=== PATIENT | male | born 1955 | race Caucasian/White ===

== ENCOUNTER 2018-05-15 08:25 | Day surgery (SDC) | payer BC ==
[2018-05-12 15:51] VITALS: BMI 34.3
[2018-05-15 08:55] LABS: EOS % 2.3 % (0-4.5); HEMATOCRIT 45.8 % (35.4-49); HEMOGLOBIN 15.8 GM/dL (11.7-16.9); LYMPH % 30.5 % (8-40); MCH 33.8 pg (25.7-33.7); MCHC 34.5 g/dl (32.0-35.9); MEAN PLT VOLUME 8.2 fl (7.5-11.1); MONO % 5.8 % (3.8-10.2); NEUT % 60.4 % (42.8-82.8); PLATELET COUNT 183 K/MM3 (134-434); RBC 4.68 M/mm3 (4.00-5.60); RDW 13.1 % (11.9-15.9); WHITE BLOOD COUNT 7.6 K/mm3 (4.0-10.0)
[2018-05-15 09:18] LABS: INR 1.01 (0.82-1.09); PROTHROMBIN TIME (PATIENT) 11.4 SEC (9.7-13.0)
[2018-05-15 15:39] VITALS: BP 143/73; PULSE 75; TEMP 97.9
--- NOTE | 2018-05-18 12:51 | PATH ---
Surgical Pathology Report Patient Name: LANDON NESS [facility]. Rec. #: [id number] /Age/Gender: 1955 (Age: 62) / M Account: [id number] Location: Taken: 05/15/2018 Received: 05/15/2018 Reported: 05/18/2018 Physicians: Mary Armenta M.D. Specimen(s) Received RIGHT LUNG BIOPSY Clinical History 62-year-old male with 2.2 cm PET positive right lower lung lesion Final Diagnosis Lung, right, LOWER, biopsy: non-small CELL lung carcinoma, Poorly differentiated. SEE COMMENT. Comment: Immunohistochemical stains performed at [place], [place] ([id number]) and interpreted at [facility] show the carcinoma is positive for TTF-1, Napsin A (focal), p40 and CK5/6; while negative for CK7. 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 Findings discussed with Elida from Dr. Eason's office. Electronically Signed Char Reeves M.D. Gross Description Received in formalin labeled "right lung biopsy," is a 0.4 x 0.4 x 0.1 cm aggregate of dobbins soft tissue fragments. The formalin is filtered and the specimen is entirely submitted in one cassette. DL/05/15/2018 saudi/05/15/2018
== END 2018-05-15 15:45 | disposition home or self-care (01) ==
LOC: JRADIR 08:25
PROVIDERS: ATTEND Surgery
PROC: 0BBF3ZX Excision of Right Lower Lung Lobe, Percutaneous Approach, Diagnostic (ICD-10-PCS; principal; 2018-05-15)
DX: C34.31 Malignant neoplasm of lower lobe, right bronchus or lung (principal)
CPT/HCPCS: 32405; 36415; 76098-TC-FY; 77012-TC; 85025; 85610; 87899; 88305-TC

== ENCOUNTER 2018-05-24 04:44 | Inpatient (IN) | payer BC ==
[2018-05-24] MEDS ORDERED: SEVOFLURANE 250 ML BTL ONE (07:25)
[2018-05-24] MEDS ORDERED: fentaNYL CITRATE 250 MCG/5 ML VIAL ONE (07:28)
[2018-05-24] MEDS ORDERED: MIDAZOLAM HCL 2 MG/2 ML SINGLE DOSE VIAL ONE (07:29)
[2018-05-24] MEDS ORDERED: ROCURONIUM BROMIDE 50 MG/5 ML VIAL ONE ×3 (07:29→09:57)
[2018-05-24] MEDS ORDERED: PROPOFOL 20 ML ONE ×3 (07:29→08:43)
[2018-05-24] MEDS ORDERED: LIDOCAINE HCL/PF 2% SDV 5ML VIAL ONE (07:30)
[2018-05-24] MEDS ORDERED: BUPIVACAINE HCL/PF 0.25% (2.5MG/ML) 10 ML VIAL ONE ×2 (07:36→12:10)
[2018-05-24] MEDS ORDERED: BUPIVACAINE HCL/PF 0.5% (5MG/ML) 10 ML VIAL ONE (07:36)
[2018-05-24] MEDS ORDERED: DEXAMETHASONE SOD PHOSPHATE 4 MG/1 ML VIAL ONE ×2 (08:08→12:28)
[2018-05-24] MEDS ORDERED: ONDANSETRON 4 MG/2 ML VIAL ONE ×2 (08:08→12:28)
[2018-05-24] MEDS ORDERED: ceFAZolin SODIUM 1 GM VIAL ONE ×2 (08:09→08:17)
[2018-05-24] MEDS ORDERED: ceFAZolin SODIUM 1 GM VIAL IVPB ONE (08:46)
[2018-05-24] MEDS ORDERED: HEPARIN NA (PORCINE) 5,000 UNITS/ML 1ML VIAL ONE (08:58)
[2018-05-24] MEDS ORDERED: HEPARIN NA (PORCINE) 5,000 UNITS/ML 1ML VIAL SQ ONE (09:04)
[2018-05-24] MEDS ORDERED: LIDOCAINE 1%/EPI 1:100000 (50 ML MULTI DOSE VIAL) INF ONE ×2 (09:24)
[2018-05-24] MEDS ORDERED: BUPIVACAINE HCL/PF 0.25% (2.5MG/ML) 10 ML VIAL IJ ONE ×2 (09:24)
[2018-05-24] MEDS ORDERED: PHENYLEPHRINE HCL 10 MG/1 ML SINGLE DOSE VIAL ONE (10:00)
[2018-05-24] MEDS ORDERED: NEOSTIGMINE METHYLSULFATE 0.5 MG/ML - 10 ML MDV ONE (12:23)
[2018-05-24] MEDS ORDERED: GLYCOPYRROLATE 0.2 MG/1 ML VIAL ONE (12:23)
--- NOTE | 2018-05-24 12:54 | OP ---
Operative Note - Note: Operative Date: 05/24/18 Pre-Operative Diagnosis: Lung cancer Operation: Bronchoscopy; VATS; RLLobectomy; MLN sampling; Intercostal nerve block. Findings: Bronchoscopy: no endobronchial lesions; some mucus. VATS: inflamed lung tissue and enlarged nodes, negative on frozen. Post-Operative Diagnosis: Same as Pre-op Surgeon: Abel Eason Internal Medicine Doctor: Bradley Coffey Anesthesiologist/AIRDROP SYSTEMS TECHNICIAN: Devin Pierre Anesthesia: General Specimens Removed: RLL; Mediastinal lymph nodes. Estimated Blood Loss (mls): 350 Drains & Tubes with Location: Right pleural space. Operative Report Dictated: Yes
[2018-05-24] MEDS ORDERED: MIDAZOLAM HCL 2 MG/2 ML SINGLE DOSE VIAL IVPUSH ONE ×2 (13:14→13:15)
[2018-05-24] MEDS ORDERED: HYDROmorphone *PCA* 10MG/50ML DISP.SYRIN PCA SCH (13:15)
[2018-05-24] MEDS ORDERED: PROMETHAZINE HCL 25 MG/1 ML VIAL IVPB PRN (13:15)
[2018-05-24] MEDS ORDERED: ONDANSETRON 4 MG/2 ML VIAL IVPUSH PRN (13:15)
[2018-05-24] MEDS ORDERED: DEXAMETHASONE SOD PHOSPHATE 4 MG/1 ML VIAL IVPUSH PRN (13:15)
[2018-05-24] MEDS ORDERED: SODIUM CHLORIDE 1,000 ML IV SCH (13:15)
[2018-05-24] MEDS ORDERED: HYDROmorphone *PCA* 10MG/50ML DISP.SYRIN PCA ONE (13:25)
[2018-05-24] MEDS ORDERED: GABAPENTIN 300 MG CAPSULE (FP) PO SCH (14:00)
[2018-05-24] MEDS ORDERED: DOCUSATE NA 100 MG/10 ML UNIT-DOSE CUPS PO SCH (14:00)
--- NOTE | 2018-05-24 16:34 | CONSULT ---
Consultation: REQUESTING PROVIDER: CONSULT REQUEST: We have been asked to medically evaluate this patient for ( specify). HISTORY OF PRESENT ILLNESS: This is a 62 yo M with PMH of DM, HTN and glaucoma, who presents POD 0 s/p Bronch, VATS, RLL lobectomy and MLN sampling, performed due to suspicion of lung CA. Procedure went w/o complication, EBL 350 cc. R sided chest Tube in in place to suction, draining minimal serosanguineous fluid. Patient is very sleepy. he complains of some R sided perlitic chest pain and cough but denies sob, cp, abd pain, n/v, h/a. REVIEW OF SYSTEMS: CONSTITUTIONAL: Absent: fever, chills HEENT: Absent: throat pain, throat swelling, difficulty swallowing CARDIOVASCULAR: Absent: chest pain, syncope, palpitations RESPIRATORY: Absent: shortness of breath, orthopnea GASTROINTESTINAL: Absent: abdominal pain, abdominal distension, nausea, vomiting GENITOURINARY: Absent: dysuria MUSCULOSKELETAL: Absent: myalgia, arthralgia SKIN: Absent: rash HEMATOLOGIC/IMMUNOLOGIC: Absent: easy bleeding, easy bruising ENDOCRINE: Absent: unexplained weight gain, unexplained weight loss NEUROLOGIC: Absent: headache, focal weakness or paresthesias PSYCHIATRIC: Absent: anxiety, depression PHYSICAL EXAMINATION Vital Signs - 24 hr 05/24/18 05/24/18 05/24/18 06:51 07:02 13:06 Temperature 98.3 F 97.8 F Pulse Rate 78 120 H Respiratory 20 26 H Rate Blood Pressure 119/77 186/83 O2 Sat by Pulse 96 98 Oximetry (%) 05/24/18 05/24/18 05/24/18 13:20 13:35 13:50 Temperature Pulse Rate 118 H 122 H 124 H Respiratory 30 H 28 H 32 H Rate Blood Pressure 159/70 175/76 141/75 O2 Sat by Pulse 100 98 96 Oximetry (%) 05/24/18 05/24/18 05/24/18 14:05 14:20 14:35 Temperature Pulse Rate 116 H 106 H 110 H Respiratory 30 H 30 H 26 H Rate Blood Pressure 183/72 172/80 116/60 O2 Sat by Pulse 96 96 94 L Oximetry (%) 05/24/18 05/24/18 05/24/18 14:50 15:05 15:20 Temperature Pulse Rate 108 H 106 H 106 H Respiratory 26 H 26 H 26 H Rate Blood Pressure 136/66 123/67 141/64 O2 Sat by Pulse 94 L 94 L 94 L Oximetry (%) GENERAL: Awake, and fully oriented, sleepy HEAD: Normal with no signs of trauma. EYES: Pupils equal, round and reactive to light, extraocular movements intact, sclera anicteric, conjunctiva clear. No lid lag. EARS, NOSE, THROAT: Moist mucous membranes. NECK: supple LUNGS: R sided crackles HEART: Regular rate and rhythm, normal S1 and S2 ABDOMEN: Soft, nontender, not distended, globally reduced bowel sounds MUSCULOSKELETAL: No CVA tenderness. R sided chest tube in place, clean dry dressing applied UPPER EXTREMITIES: 2+ pulses, warm, well-perfused. LOWER EXTREMITIES: 2+ pulses, warm, well-perfused. No peripheral edema. NEUROLOGICAL: Cranial nerves II-XII grossly intact. PSYCHIATRIC: Cooperative. Good eye contact. Appropriate mood and affect. SKIN: Warm, dry Laboratory Results - last 24 hr 05/24/18 06:30 POC Glucometer 263 Active Medications Generic Name Dose Route Start Last Admin Trade Name Freq PRN Reason Stop Dose Admin Dexamethasone Sodium Phosphate 4 mg 05/24/18 13:15 Decadron Injection - IVPUSH ONCE PRN NAUSEA AND/OR VOMITING Diphenhydramine HCl 12.5 mg 05/24/18 13:15 Benadryl Injection - IVPUSH ONCE PRN FOR ITCHING Fentanyl 50 mcg 05/24/18 13:14 Sublimaze Injection - IVPUSH [id number] PRN PAIN-PACU ORDER X 4 DOSES ONLY Heparin Sodium (Porcine) 5,000 unit 05/24/18 22:00 Heparin - SQ BID ASIYA Hydromorphone HCl 0 mg 05/24/18 13:15 Dilaudid [employer]crew[employer] Operator - PAYROLL SECRETARY 05/31/18 13:15 PAYROLL SECRETARY ASIYA Protocol Sodium Chloride 1,000 mls @ 75 mls/hr 05/24/18 13:15 Normal Saline - IV ASDIR ASIYA Ipratropium [place] 1 amp 05/24/18 16:00 Atrovent 0.02% Nebulizer - NEB RQID ASIYA Ondansetron HCl 4 mg 05/24/18 13:15 Zofran Injection IVPUSH Q4H PRN NAUSEA AND/OR VOMITING Promethazine HCl 12.5 mg 05/24/18 13:15 Phenergan Injection - IVPB Q6H PRN NAUSEA AND/OR VOMITING ASSESSMENT/PLAN: This is a 62 yo M with PMH of DM, HTN and glaucoma, who presents POD 0 s/p Bronch, VATS, RLL lobectomy and MLN sampling, performed due to suspicion of lung CA. Suspicious RLL pulmonary lesion POD 0 s/p RLL lobectomy/MLN sampling -R chest tube to suction -pain control with IV tylenol, dilaudid PAYROLL SECRETARY -NS @ 75 -NPO except meds -incentive spirometry -aspiration precautions -hep sq ppx -PPI NIDDM HTN Glaucoma -ISS, BGM -toprol xl, lisinopril -lantoprost OU Dispo: We will continue to follow the patient. Thank you for this consultative opportunity. Problem List - Problems (1) S/P lobectomy of lung Code(s): Z90.2 - ACQUIRED ABSENCE OF LUNG [PART OF] (2) Lung cancer Code(s): C34.90 - MALIGNANT NEOPLASM OF UNSP PART OF UNSP BRONCHUS OR LUNG (3) HTN (hypertension) Code(s): I10 - ESSENTIAL (PRIMARY) HYPERTENSION (4) Diabetes mellitus Code(s): E11.9 - TYPE 2 DIABETES MELLITUS WITHOUT COMPLICATIONS (5) Glaucoma Code(s): H40.9 - UNSPECIFIED GLAUCOMA Visit type - Emergency Visit Emergency Visit: No - New Patient This patient is new to me today: Yes Date on this admission: 05/24/18 - Critical Care Critical Care patient: Yes Total Critical Care Time (in minutes): 35 Critical Care Statement: The care of this patient involved high complexity decision making to prevent further life threatening deterioration of the patient 's condition and/or to evaluate & treat vital organ system(s) failure or risk of failure.
[2018-05-24] MEDS ORDERED: ACETAMINOPHEN 1000 MG/100 ML VIAL (NON FORMULARY) IVPB PRN (16:51)
--- NOTE | 2018-05-24 16:54 | HP ---
Admitting History and Physical - Primary Care Physician PCP: Torres Cantrell ([email or web address]) - Admission Chief Complaint: Lung Biopsy History of Present Illness: This is a 62 yo M with PMH of DM and HTN, who presents POD 0 s/p Bronchoscopy, VATS, RLL lobectomy and MLN sampling, performed due to suspicion of lung CA. Procedure went w/o complication, EBL 350 cc. R sided chest Tube in in place to suction, draining minimal serosanguineous fluid. Patient Lethargic due to Anesthesia. Seen in PACU S/P lobectomy. Was agitated, given versed. History Source: Medical Record Limitations to Obtaining History: Clinical Condition - Smoking History Smoking history: Former smoker Have you smoked in the past 12 months: Yes Aproximately how many cigarettes per day: 20 If you are a former smoker, when did you quit?: 03/2018 - Alcohol/Substance Use Hx Alcohol Use: No Home Medications - Allergies Allergies/Adverse Reactions: Allergies Allergy/AdvReac Type Severity Reaction Status Date / Time No Known Drug Allergies Allergy Verified 05/24/18 07:02 - Home Medications Home Medications: Ambulatory Orders Lisinopril [Prinivil] 10 mg PO HS 11/28/13 Metoprolol Succinate [Toprol XL -] 25 mg PO HS 01/15/14 Aspirin [ASA -] 81 mg PO DAILY 05/12/18 Latanoprost 0.005% Eye Drops [Xalatan 0.005% Eye Drops -] 1 drop OU HS 05/12/18 metFORMIN HCL [Metformin HCl] 500 mg PO HS 05/12/18 Review of Systems Unable to obtain ROS, reason: Pt lethargic Physical Examination Vital Signs: Vital Signs Temperature 98.5 F 05/24/18 16:05 Pulse Rate 108 H 05/24/18 16:45 Respiratory Rate 25 H 05/24/18 16:45 Blood Pressure 133/72 05/24/18 16:45 O2 Sat by Pulse Oximetry (%) 98 05/24/18 16:15 Constitutional: Yes: Well Nourished, No Distress, Calm Cardiovascular: Yes: Regular Rate and Rhythm Respiratory: Yes: Regular Gastrointestinal: Yes: Normal Bowel Sounds, Soft, Abdomen, Obese Neurological: Yes: Other (arousable) Problem List - Problems (1) Diabetes mellitus Assessment/Plan: -BGM ACHS -Diabetic diet when ready to start PO intake -Insulin -RD consult -A1C Code(s): E11.9 - TYPE 2 DIABETES MELLITUS WITHOUT COMPLICATIONS Qualifiers: Diabetes mellitus complication detail: with autonomic neuropathy (2) S/P lobectomy of lung Assessment/Plan: -Seen by CT surgery -Chest tube draining -Would need ICU monitoring -Vitals stable at this time -Pain management Code(s): Z90.2 - ACQUIRED ABSENCE OF LUNG [PART OF] Assessment/Plan see problem list labs
[2018-05-24] MEDS ORDERED: CEFAZOLIN 1 GM in DEXTROSE 5%-WATER - 50 ML IVPB SCH (18:00)
[2018-05-24] MEDS: IPRATROPIUM BR 0.02% 0.5 MG/2.5 ML VIAL.NEB. NEB SCH ×2 (18:00→20:54)
[2018-05-24 18:25] LABS: BASO % 0.2 % (0-2.0); LYMPH % 3.1 % (8-40); MCH 34.4 pg (25.7-33.7); MCHC 34.8 g/dl (32.0-35.9); MEAN CELL VOLUME 98.9 fl (80-96); MEAN PLT VOLUME 7.8 fl (7.5-11.1); MONO % 5.1 % (3.8-10.2); NEUT % 91.6 % (42.8-82.8); PLATELET COUNT 208 K/MM3 (134-434); RBC 4.35 M/mm3 (4.00-5.60); RDW 13.2 % (11.9-15.9); WHITE BLOOD COUNT 15.4 K/mm3 (4.0-10.0)
[2018-05-24 18:46] LABS: CORRECTED WBC 0.01 K/mm3
[2018-05-24 18:47] LABS: ALBUMIN 3.3 g/dl (3.4-5.0); ALK PHOS 66 U/L (45-117); ANION GAP 9 (8-16); BILIRUBIN,TOTAL 0.9 mg/dL (0.2-1.0); BLOOD UREA NITROGEN 18 mg/dL (7-18); CALCIUM 8.4 mg/dL (8.5-10.1); CHLORIDE 103 mmol/L (98-107); CO2 23 mmol/L (21-32); CREATININE 1.4 mg/dL (0.7-1.3); MAGNESIUM 1.9 mg/dL (1.8-2.4); PHOSPHOROUS 3.8 mg/dL (2.5-4.9); SGOT/AST 43 U/L (15-37); SGPT/ALT 54 U/L (12-78); SODIUM 135 mmol/L (136-145)
[2018-05-24 18:51] LABS: GLUCOSE,RANDOM 370 mg/dL (74-106); POTASSIUM 6.4 mmol/L (3.5-5.1)
[2018-05-24] MEDS ORDERED: ALBUTEROL SO4 2.5/IPRATROPIUM 0.5 INH SOL 3 ML VIAL.NEB. NEB PRN (19:35)
[2018-05-24 20:31] LABS: ANISOCYTOSIS 1+; MACROCYTOSIS 1+; PLATELET ESTIMATE ADEQUATE
[2018-05-24] MEDS ORDERED: SODIUM POLYSTYRENE SULFONATE 15 GM/60 ML BOTTLE PO ONE (21:00)
[2018-05-24] MEDS: HEPARIN NA (PORCINE) 5,000 UNITS/ML 1ML VIAL SQ SCH (21:18)
[2018-05-24] MEDS: INSULIN SLIDING SCALE (NOVOLOG) 1 VIAL SQ SCH (21:43)
[2018-05-24 22:00] LABS: ANION GAP 8 (8-16); BLOOD UREA NITROGEN 19 mg/dL (7-18); CALCIUM 8.4 mg/dL (8.5-10.1); CHLORIDE 104 mmol/L (98-107); CO2 25 mmol/L (21-32); CREATININE 1.3 mg/dL (0.7-1.3); GLUCOSE,RANDOM 284 mg/dL (74-106); POTASSIUM 5.3 mmol/L (3.5-5.1); SODIUM 137 mmol/L (136-145)
[2018-05-24] MEDS ORDERED: LISINOPRIL 10 MG TABLET (FP) PO SCH (22:00)
[2018-05-24] MEDS ORDERED: LATANOPROST 0.005% OPHTH SOLN 2.5ML BOTTLE OU SCH (22:00)
[2018-05-24] MEDS ORDERED: INSULIN SLIDING SCALE (NOVOLOG) 1 VIAL SQ SCH (22:00)
[2018-05-24] MEDS ORDERED: SENNOSIDES 8.6MG TABLET (FP) PO SCH (22:00)
[2018-05-24] MEDS ORDERED: metoPROLOL SUCCINATE 25 MG TAB.SR.24H (FP) PO SCH (22:00)
[2018-05-25] MEDS: INSULIN SLIDING SCALE (NOVOLOG) 1 VIAL SQ SCH ×4 (06:24→21:45)
[2018-05-25 06:43] LABS: BASO % 0.4 % (0-2.0); EOS % 0.1 % (0-4.5); HEMATOCRIT 38.7 % (35.4-49); HEMOGLOBIN 13.6 GM/dL (11.7-16.9); LYMPH % 15.1 % (8-40); MCHC 35.2 g/dl (32.0-35.9); MEAN CELL VOLUME 99.3 fl (80-96); MEAN PLT VOLUME 8.1 fl (7.5-11.1); MONO % 7.7 % (3.8-10.2); NEUT % 76.7 % (42.8-82.8); PLATELET COUNT 197 K/MM3 (134-434); RBC 3.89 M/mm3 (4.00-5.60); WHITE BLOOD COUNT 12.9 K/mm3 (4.0-10.0)
[2018-05-25 06:56] LABS: ALBUMIN 2.9 g/dl (3.4-5.0); ANION GAP 7 (8-16); BLOOD UREA NITROGEN 21 mg/dL (7-18); CALCIUM 7.8 mg/dL (8.5-10.1); CHLORIDE 105 mmol/L (98-107); CO2 27 mmol/L (21-32); GLUCOSE,RANDOM 238 mg/dL (74-106); PHOSPHOROUS 3.5 mg/dL (2.5-4.9); POTASSIUM 4.7 mmol/L (3.5-5.1); SGOT/AST 27 U/L (15-37); SGPT/ALT 41 U/L (12-78); SODIUM 139 mmol/L (136-145)
[2018-05-25 06:59] LABS: ALK PHOS 56 U/L (45-117); BILIRUBIN,TOTAL 0.7 mg/dL (0.2-1.0); CREATININE 1.2 mg/dL (0.7-1.3); TOT PROT 6.2 g/dl (6.4-8.2)
[2018-05-25] MEDS: IPRATROPIUM BR 0.02% 0.5 MG/2.5 ML VIAL.NEB. NEB SCH ×2 (08:31→12:00)
--- NOTE | 2018-05-25 08:52 | PN ---
Progress Note, Physician Chief Complaint: s/p right VATS, Right lower lobectomy under general anesthesia History of Present Illness: post op day one - Current Medication List Current Medications: Active Medications Acetaminophen (Ofirmev Injection -) 1,000 mg IVPB Q6H PRN PRN Reason: PAIN LEVEL 1-5 Albuterol/Ipratropium (Duoneb -) 1 amp NEB Q6H PRN PRN Reason: SHORTNESS OF BREATH Dexamethasone Sodium Phosphate (Decadron Injection -) 4 mg IVPUSH ONCE PRN PRN Reason: NAUSEA AND/OR VOMITING Diphenhydramine HCl (Benadryl Injection -) 12.5 mg IVPUSH ONCE PRN PRN Reason: FOR ITCHING Fentanyl (Sublimaze Injection -) 50 mcg IVPUSH [id number] PRN PRN Reason: PAIN-PACU ORDER X 4 DOSES ONLY Heparin Sodium (Porcine) (Heparin -) 5,000 unit SQ BID ASIYA Last Admin: 05/24/18 21:18 Dose: 5,000 unit Hydromorphone HCl (Dilaudid Electrician Powerhouse -) 0 mg ACOUSTICAL ENGINEER ACOUSTICAL ENGINEER [facility]; Protocol Stop: 05/31/18 13:15 Last Admin: 05/24/18 17:35 Dose: Not Given Sodium Chloride (Normal Saline -) 1,000 mls @ 75 mls/hr IV ASDIR [facility] Last Admin: 05/24/18 17:15 Dose: Not Given Insulin Aspart (Novolog Vial Sliding Scale -) 1 vial SQ ACHS [facility]; Protocol Last Admin: 05/25/18 06:24 Dose: 6 units Ipratropium [place] (Atrovent 0.02% Nebulizer -) 1 amp NEB RQID [facility] Last Admin: 05/25/18 08:31 Dose: 1 amp Latanoprost (Xalatan 0.005% Eye Drops -) 1 drop OU HS [facility] Last Admin: 05/24/18 23:47 Dose: 1 drop Lisinopril (Prinivil) 10 mg PO HS [facility] Last Admin: 05/24/18 21:19 Dose: 10 mg Metoprolol Succinate (Toprol Xl -) 25 mg PO HS [facility] Last Admin: 05/24/18 21:19 Dose: 25 mg Ondansetron HCl (Zofran Injection) 4 mg IVPUSH Q4H PRN PRN Reason: NAUSEA AND/OR VOMITING Pantoprazole Sodium (Protonix Iv) 40 mg IVPUSH DAILY ASIYA Promethazine HCl (Phenergan Injection -) 12.5 mg IVPB Q6H PRN PRN Reason: NAUSEA AND/OR VOMITING - Objective Vital Signs: Vital Signs Temperature 98.8 F 05/25/18 06:00 Pulse Rate 136 H 05/25/18 08:00 Respiratory Rate 21 05/25/18 08:00 Blood Pressure 118/70 05/25/18 08:00 O2 Sat by Pulse Oximetry (%) 96 05/24/18 20:55 Constitutional: Yes: Well Nourished Cardiovascular: Yes: WNL Respiratory: Yes: On Nasal O2 Gastrointestinal: Yes: WNL Labs: CBC, BMP 05/25/18 05:30 05/25/18 05:30 Assessment/Plan No adverse effects of anesthetic, on ACOUSTICAL ENGINEER, working well, will discontinue as patient is taking PO and convert to oral analgesics.
[2018-05-25] MEDS ORDERED: oxyCODONE HCL 5 MG TABLET PO PRN ×4 (08:53→16:51)
[2018-05-25] MEDS ORDERED: DOCUSATE SODIUM 100 MG CAPSULE (FP) PO PRN ×2 (08:53→16:51)
[2018-05-25] MEDS: HEPARIN NA (PORCINE) 5,000 UNITS/ML 1ML VIAL SQ SCH ×2 (09:29→21:25)
[2018-05-25] MEDS ORDERED: ACETAMINOPHEN 325 MG TABLET (FP) PO PRN ×2 (09:53→16:51)
--- NOTE | 2018-05-25 09:55 | PN ---
Progress Note (short form) - Note Progress Note: Thoracic Surgery POD#1 Doing well, pain controlled, now on po. Added gabapentin and po tylenol. Slight tachycardia OOB, ambulate. Pulm toilet, to have standing ipratropium nebs and work with Resp therapy. Chest tube to water seal, likely remove tomorrow.
[2018-05-25] MEDS ORDERED: IPRATROPIUM BR 0.02% 0.5 MG/2.5 ML VIAL.NEB. NEB SCH (10:00)
[2018-05-25] MEDS ORDERED: PANTOPRAZOLE SODIUM 40 MG VIAL IVPUSH SCH (10:00)
[2018-05-25] MEDS ORDERED: METOPROLOL TARTRATE 25 MG TABLET (FP) PO SCH (12:15)
[2018-05-25] MEDS ORDERED: ALBUTEROL SO4 2.5/IPRATROPIUM 0.5 INH SOL 3 ML VIAL.NEB. NEB PRN (12:34)
--- NOTE | 2018-05-25 12:37 | PN ---
Progress Note, Physician Chief Complaint: patient seen and examiend s/p VATS and right lower lobectomy popst op day 1 chest tube draining on po meds - Current Medication List Current Medications: Active Medications Acetaminophen (Tylenol -) 650 mg PO Q4H PRN PRN Reason: MILD PAIN Albuterol/Ipratropium (Duoneb -) 1 amp NEB Q6H ASIYA Dexamethasone Sodium Phosphate (Decadron Injection -) 4 mg IVPUSH ONCE PRN PRN Reason: NAUSEA AND/OR VOMITING Diphenhydramine HCl (Benadryl Injection -) 12.5 mg IVPUSH ONCE PRN PRN Reason: FOR ITCHING Docusate Sodium (Colace -) 100 mg PO Q8H PRN PRN Reason: CONSTIPATION Last Admin: 05/25/18 11:44 Dose: 100 mg Gabapentin (Neurontin -) 600 mg PO TID [facility] Heparin Sodium (Porcine) (Heparin -) 5,000 unit SQ BID [facility] Last Admin: 05/25/18 09:29 Dose: 5,000 unit Insulin Aspart (Novolog Vial Sliding Scale -) 1 vial SQ ACHS [facility]; Protocol Last Admin: 05/25/18 11:02 Dose: 6 units Ipratropium [place] (Atrovent 0.02% Nebulizer -) 1 amp NEB RQID [facility] Last Admin: 05/25/18 08:31 Dose: 1 amp Ipratropium [place] (Atrovent 0.02% Nebulizer -) 1 amp NEB Q6H ASIYA Latanoprost (Xalatan 0.005% Eye Drops -) 1 drop OU HS [facility] Last Admin: 05/24/18 23:47 Dose: 1 drop Lisinopril (Prinivil) 10 mg PO HS [facility] Last Admin: 05/24/18 21:19 Dose: 10 mg Metoprolol Tartrate (Lopressor -) 25 mg PO BID [facility] Ondansetron HCl (Zofran Injection) 4 mg IVPUSH Q4H PRN PRN Reason: NAUSEA AND/OR VOMITING Oxycodone HCl (Roxicodone -) 10 mg PO Q3H PRN PRN Reason: PAIN LEVEL 7 - 10 Oxycodone HCl (Roxicodone -) 5 mg PO Q3H PRN PRN Reason: PAIN LEVEL 4 - 6 Last Admin: 05/25/18 11:45 Dose: 5 mg Pantoprazole Sodium (Protonix Iv) 40 mg IVPUSH DAILY ASIYA Last Admin: 05/25/18 09:29 Dose: 40 mg Promethazine HCl (Phenergan Injection -) 12.5 mg IVPB Q6H PRN PRN Reason: NAUSEA AND/OR VOMITING - Objective Vital Signs: Vital Signs Temperature 97.9 F 05/25/18 10:00 Pulse Rate 92 H 05/25/18 12:00 Respiratory Rate 21 05/25/18 12:00 Blood Pressure 111/62 05/25/18 12:00 O2 Sat by Pulse Oximetry (%) 96 05/25/18 08:01 Constitutional: Yes: Calm Cardiovascular: Yes: Regular Rate and Rhythm, S1, S2 Respiratory: Yes: CTA Bilaterally (in upper [place]), Diminished, Other (right sided chest tube serosangionus) Gastrointestinal: Yes: Normal Bowel Sounds, Soft Extremities: Yes: Other (scd) Neurological: Yes: Alert, Oriented Labs: CBC, BMP 05/25/18 05:30 05/25/18 05:30 Problem List - Problems (1) S/P lobectomy of lung Assessment/Plan: CTS on board chest tube to be removed tmw nebulizers incentive spirometry pain control dvt ppx Code(s): Z90.2 - ACQUIRED ABSENCE OF LUNG [PART OF] (2) Glaucoma Assessment/Plan: eye drops Code(s): H40.9 - UNSPECIFIED GLAUCOMA (3) HTN (hypertension) Assessment/Plan: lisinopril and metoprolol Code(s): I10 - ESSENTIAL (PRIMARY) HYPERTENSION (4) Diabetes mellitus Assessment/Plan: sliding scale bgm diabetic diet Code(s): E11.9 - TYPE 2 DIABETES MELLITUS WITHOUT COMPLICATIONS Qualifiers: Diabetes mellitus complication detail: with autonomic neuropathy
[2018-05-25] MEDS ORDERED: ALBUTEROL SO4 2.5/IPRATROPIUM 0.5 INH SOL 3 ML VIAL.NEB. NEB SCH (12:45)
[2018-05-25] MEDS ORDERED: GABAPENTIN 300 MG CAPSULE (FP) PO SCH (14:00)
--- NOTE | 2018-05-25 14:23 | PN ---
Physical Exam: SUBJECTIVE: Patient seen and examined in the ICU. States his SOB is improving. Complains of pain at the site of the chest tube and on deep inspiration. States he is tolerating his diet well and is not currently having nausea or vomiting. OBJECTIVE: Vital Signs Period Temp Pulse Resp BP Sys/[place] Pulse Ox Last 24 Hr 97.9 F-98.8 F 74-136 14-30 111-172/03-80 94-98 GENERAL: The patient is awake, alert, and fully oriented, in no acute distress. HEAD: Normal with no signs of trauma. EYES: PERRL, sclera anicteric, conjunctiva clear. No ptosis. ENT: moist mucous membranes. NECK: Trachea midline, supple. LUNGS: Crackles worse on the right HEART: Regular rate and rhythm, S1, S2 without murmur, rub or gallop. ABDOMEN: Soft, nontender, nondistended, normoactive bowel sounds, no guarding, no rebound EXTREMITIES: warm, well-perfused, no edema. NEUROLOGICAL: Cranial nerves II through XII grossly intact. Normal speech, gait not observed. PSYCH: Normal mood, normal affect. SKIN: Warm, dry, normal turgor, no rashes or lesions noted Laboratory Results - last 24 hr 05/24/18 05/24/18 05/24/18 17:45 17:45 21:20 WBC 15.4 H Corrected WBC (auto) 0.01 RBC 4.35 Hgb 15.0 Hct 43.0 MCV 98.9 H MCH 34.4 H MCHC 34.8 RDW 13.2 Plt Count 208 MPV 7.8 Absolute Neuts (auto) 14.1 Neutrophils % 91.6 H D Neutrophils % (Manual) 85.0 H Band Neutrophils % 5.0 Lymphocytes % 3.1 L D Lymphocytes % (Manual) 8.0 Monocytes % 5.1 Monocytes % (Manual) 2 L Eosinophils % 0.0 D Basophils % 0.2 Nucleated RBC % 0 Platelet Estimate Adequate Platelet Comment No clumping noted Anisocytosis 1+ Macrocytosis 1+ Sodium 135 L 137 Potassium 6.4 H* D 5.3 H Chloride 103 104 Carbon Dioxide 23 25 Anion Gap 9 8 BUN 18 19 H Creatinine 1.4 H 1.3 Creat Clearance w eGFR 51.18 55.75 Random Glucose 370 H* 284 H D Calcium 8.4 L 8.4 L Phosphorus 3.8 Magnesium 1.9 Total Bilirubin 0.9 AST 43 H ALT 54 Alkaline Phosphatase 66 D Total Protein 7.0 Albumin 3.3 L 05/25/18 05/25/18 05:30 05:30 WBC 12.9 H Corrected WBC (auto) RBC 3.89 L Hgb 13.6 Hct 38.7 MCV 99.3 H MCH 35.0 H MCHC 35.2 RDW 13.0 Plt Count 197 MPV 8.1 Absolute Neuts (auto) 9.9 Neutrophils % 76.7 Neutrophils % (Manual) Band Neutrophils % Lymphocytes % 15.1 D Lymphocytes % (Manual) Monocytes % 7.7 Monocytes % (Manual) Eosinophils % 0.1 D Basophils % 0.4 Nucleated RBC % 0 Platelet Estimate Platelet Comment Anisocytosis Macrocytosis Sodium 139 Potassium 4.7 Chloride 105 Carbon Dioxide 27 Anion Gap 7 L BUN 21 H Creatinine 1.2 Creat Clearance w eGFR > 60 Random Glucose 238 H Calcium 7.8 L Phosphorus 3.5 Magnesium 2.0 Total Bilirubin 0.7 AST 27 D ALT 41 D Alkaline Phosphatase 56 D Total Protein 6.2 L Albumin 2.9 L Active Medications Generic Name Dose Route Start Last Admin Trade Name Freq PRN Reason Stop Dose Admin Acetaminophen 650 mg 05/25/18 09:53 Tylenol - PO Q4H PRN MILD PAIN Albuterol/Ipratropium 1 amp 05/25/18 12:45 Duoneb - NEB QIDR ASIYA Albuterol/Ipratropium 1 amp 05/25/18 12:34 Duoneb - NEB Q6H PRN SHORTNESS OF BREATH Dexamethasone Sodium Phosphate 4 mg 05/24/18 13:15 Decadron Injection - IVPUSH ONCE PRN NAUSEA AND/OR VOMITING Diphenhydramine HCl 12.5 mg 05/24/18 13:15 Benadryl Injection - IVPUSH ONCE PRN FOR ITCHING Docusate Sodium 100 mg 05/25/18 08:53 05/25/18 11:44 Colace - PO 100 mg Q8H PRN Administration CONSTIPATION Gabapentin 600 mg 05/25/18 14:00 05/25/18 13:49 Neurontin - PO 600 mg TID ASIYA Administration Heparin Sodium (Porcine) 5,000 unit 05/24/18 22:00 05/25/18 09:29 Heparin - SQ 5,000 unit BID ASIYA Administration Insulin Aspart 1 vial 05/24/18 22:00 05/25/18 11:02 Novolog Vial Sliding Scale - SQ 6 units ACHS ASIYA Administration Protocol Ipratropium [place] 1 amp 05/24/18 16:00 05/25/18 08:31 Atrovent 0.02% Nebulizer - NEB 1 amp RQID ASIYA Administration Ipratropium [place] 1 amp 05/25/18 10:00 Atrovent 0.02% Nebulizer - NEB Q6H ASIYA Latanoprost 1 drop 05/24/18 22:00 05/24/18 23:47 Xalatan 0.005% Eye Drops - OU 1 drop HS ASIYA Administration Lisinopril 10 mg 05/24/18 22:00 05/24/18 21:19 Prinivil PO 10 mg HS ASIYA Administration Metoprolol Tartrate 25 mg 05/25/18 12:15 05/25/18 13:15 Lopressor - PO 25 mg BID ASIYA Administration Ondansetron HCl 4 mg 05/24/18 13:15 Zofran Injection IVPUSH Q4H PRN NAUSEA AND/OR VOMITING Oxycodone HCl 10 mg 05/25/18 08:53 05/25/18 14:04 Roxicodone - PO 10 mg Q3H PRN Administration PAIN LEVEL 7 - 10 Oxycodone HCl 5 mg 05/25/18 08:53 05/25/18 11:45 Roxicodone - PO 5 mg Q3H PRN Administration PAIN LEVEL 4 - 6 Pantoprazole Sodium 40 mg 05/25/18 10:00 05/25/18 09:29 Protonix Iv IVPUSH 40 mg DAILY ASIYA Administration Promethazine HCl 12.5 mg 05/24/18 13:15 Phenergan Injection - IVPB Q6H PRN NAUSEA AND/OR VOMITING ASSESSMENT/PLAN: 62 yo male admitted to the ICU s/p VATS with RLL lobectomy to remove nodule most likely a type of Non small cell lung cancer. Post op day 1 Neuro -No known neuro issues at this time Cardio -HTN/Tachycardia currently regular rate, normotensive Metoprolol 25 mg PO BID, will adjust as necessary for HR control Lisinopril 10 mg PO Daily Pulmonary -s/p VATS with RLL lobectomy to remove nodule awaiting pathology report Right chest tube in place, gravity drainage Incentive spirometry Atrovent NEB Q6 PRN GI -GERD Protonix 40 mg IV Daily Endocrine -DM Insulin sliding scale Pain control -d/c SCREEDMAN/LABORER as per anesthesia -Tylenol 650 mg PO Q4 PRN -Oxycodone 5 mg PO Q3 PRN -Oxycodone 10 mg PO Q3 PRN -Gabapentin 600 mg PO TID DVT Prophylaxis -Heparin 5000 units SQ BID FEN -Fluids: none -Electrolytes: no electrolyte abnormalities, BMP in AM -Nutrition: Diabetic diet Disposition -can be transferred to telemetry Problem List - Problems (1) Diabetes mellitus Code(s): E11.9 - TYPE 2 DIABETES MELLITUS WITHOUT COMPLICATIONS Qualifiers: Diabetes mellitus complication detail: with autonomic neuropathy (2) HTN (hypertension) Code(s): I10 - ESSENTIAL (PRIMARY) HYPERTENSION (3) Lung cancer Code(s): C34.90 - MALIGNANT NEOPLASM OF UNSP PART OF UNSP BRONCHUS OR LUNG (4) S/P lobectomy of lung Code(s): Z90.2 - ACQUIRED ABSENCE OF LUNG [PART OF] Visit type - Emergency Visit Emergency Visit: No - New Patient This patient is new to me today: Yes Date on this admission: 05/25/18 - Critical Care Critical Care patient: Yes Total Critical Care Time (in minutes): 40 Critical Care Statement: The care of this patient involved high complexity decision making to prevent further life threatening deterioration of the patient 's condition and/or to evaluate & treat vital organ system(s) failure or risk of failure.
--- NOTE | 2018-05-25 14:27 | PN ---
Teaching Attending Note Name of Resident: Haider Hussein ATTENDING PHYSICIAN STATEMENT I saw and evaluated the patient. I reviewed the resident's note and discussed the case with the resident. I agree with the resident's findings and plan as documented. SUBJECTIVE: Patient seen examined in the ICU. Awake and alert. Pain seems adequately controlled. No hemoptysis. CT intact: No air leak. CXR: CT intact / no PTX Intake & Output 05/22/18 05/23/18 05/24/18 05/25/18 23:59 23:59 23:59 23:59 Intake Total 3250 560 Output Total 2670 710 Balance 580 -150 Weight 175 lb 180 lb 4.8 oz Last Vital Signs Temp Pulse Resp BP Pulse Ox 97.9 F 112 H 23 101/54 96 05/25/18 10:00 05/25/18 14:00 05/25/18 14:00 05/25/18 14:00 05/25/18 08:01 Active Medications Acetaminophen (Tylenol -) 650 mg PO Q4H PRN PRN Reason: MILD PAIN Albuterol/Ipratropium (Duoneb -) 1 amp NEB QIDR ASIYA Albuterol/Ipratropium (Duoneb -) 1 amp NEB Q6H PRN PRN Reason: SHORTNESS OF BREATH Dexamethasone Sodium Phosphate (Decadron Injection -) 4 mg IVPUSH ONCE PRN PRN Reason: NAUSEA AND/OR VOMITING Diphenhydramine HCl (Benadryl Injection -) 12.5 mg IVPUSH ONCE PRN PRN Reason: FOR ITCHING Docusate Sodium (Colace -) 100 mg PO Q8H PRN PRN Reason: CONSTIPATION Last Admin: 05/25/18 11:44 Dose: 100 mg Gabapentin (Neurontin -) 600 mg PO TID [facility] Last Admin: 05/25/18 13:49 Dose: 600 mg Heparin Sodium (Porcine) (Heparin -) 5,000 unit SQ BID [facility] Last Admin: 05/25/18 09:29 Dose: 5,000 unit Insulin Aspart (Novolog Vial Sliding Scale -) 1 vial SQ ACHS [facility]; Protocol Last Admin: 05/25/18 11:02 Dose: 6 units Ipratropium [facility] (Atrovent 0.02% Nebulizer -) 1 amp NEB RQID [facility] Last Admin: 05/25/18 08:31 Dose: 1 amp Ipratropium [facility] (Atrovent 0.02% Nebulizer -) 1 amp NEB Q6H [facility] Latanoprost (Xalatan 0.005% Eye Drops -) 1 drop OU HS [facility] Last Admin: 05/24/18 23:47 Dose: 1 drop Lisinopril (Prinivil) 10 mg PO HS [facility] Last Admin: 05/24/18 21:19 Dose: 10 mg Metoprolol Tartrate (Lopressor -) 25 mg PO BID [facility] Last Admin: 05/25/18 13:15 Dose: 25 mg Ondansetron HCl (Zofran Injection) 4 mg IVPUSH Q4H PRN PRN Reason: NAUSEA AND/OR VOMITING Oxycodone HCl (Roxicodone -) 10 mg PO Q3H PRN PRN Reason: PAIN LEVEL 7 - 10 Last Admin: 05/25/18 14:04 Dose: 10 mg Oxycodone HCl (Roxicodone -) 5 mg PO Q3H PRN PRN Reason: PAIN LEVEL 4 - 6 Last Admin: 05/25/18 11:45 Dose: 5 mg Pantoprazole Sodium (Protonix Iv) 40 mg IVPUSH DAILY [facility] Last Admin: 05/25/18 09:29 Dose: 40 mg Promethazine HCl (Phenergan Injection -) 12.5 mg IVPB Q6H PRN PRN Reason: NAUSEA AND/OR VOMITING GENERAL: Awake, and fully oriented, NAD HEAD: Normal with no signs of trauma. EYES: Sclera anicteric, conjunctiva clear. EARS, NOSE, THROAT: Moist mucous membranes. NECK: supple LUNGS: Right CT, no air leak, few rhonchi HEART: Regular rate and rhythm, normal S1 and S2 ABDOMEN: Soft, nontender, not distended, globally reduced bowel sounds MUSCULOSKELETAL: No CVA tenderness. R sided chest tube in place, clean dry dressing applied UPPER EXTREMITIES: 2+ pulses, warm, well-perfused. LOWER EXTREMITIES: 2+ pulses, warm, well-perfused. No peripheral edema. NEUROLOGICAL: Non-focal PSYCHIATRIC: Cooperative. Good eye contact. Appropriate mood and affect. SKIN: Warm, dry Laboratory Results - last 24 hr 05/24/18 05/24/18 05/24/18 17:45 17:45 21:20 WBC 15.4 H Corrected WBC (auto) 0.01 RBC 4.35 Hgb 15.0 Hct 43.0 MCV 98.9 H MCH 34.4 H MCHC 34.8 RDW 13.2 Plt Count 208 MPV 7.8 Absolute Neuts (auto) 14.1 Neutrophils % 91.6 H D Neutrophils % (Manual) 85.0 H Band Neutrophils % 5.0 Lymphocytes % 3.1 L D Lymphocytes % (Manual) 8.0 Monocytes % 5.1 Monocytes % (Manual) 2 L Eosinophils % 0.0 D Basophils % 0.2 Nucleated RBC % 0 Platelet Estimate Adequate Platelet Comment No clumping noted Anisocytosis 1+ Macrocytosis 1+ Sodium 135 L 137 Potassium 6.4 H* D 5.3 H Chloride 103 104 Carbon Dioxide 23 25 Anion Gap 9 8 BUN 18 19 H Creatinine 1.4 H 1.3 Creat Clearance w eGFR 51.18 55.75 Random Glucose 370 H* 284 H D Calcium 8.4 L 8.4 L Phosphorus 3.8 Magnesium 1.9 Total Bilirubin 0.9 AST 43 H ALT 54 Alkaline Phosphatase 66 D Total Protein 7.0 Albumin 3.3 L 05/25/18 05/25/18 05:30 05:30 WBC 12.9 H Corrected WBC (auto) RBC 3.89 L Hgb 13.6 Hct 38.7 MCV 99.3 H MCH 35.0 H MCHC 35.2 RDW 13.0 Plt Count 197 MPV 8.1 Absolute Neuts (auto) 9.9 Neutrophils % 76.7 Neutrophils % (Manual) Band Neutrophils % Lymphocytes % 15.1 D Lymphocytes % (Manual) Monocytes % 7.7 Monocytes % (Manual) Eosinophils % 0.1 D Basophils % 0.4 Nucleated RBC % 0 Platelet Estimate Platelet Comment Anisocytosis Macrocytosis Sodium 139 Potassium 4.7 Chloride 105 Carbon Dioxide 27 Anion Gap 7 L BUN 21 H Creatinine 1.2 Creat Clearance w eGFR > 60 Random Glucose 238 H Calcium 7.8 L Phosphorus 3.5 Magnesium 2.0 Total Bilirubin 0.7 AST 27 D ALT 41 D Alkaline Phosphatase 56 D Total Protein 6.2 L Albumin 2.9 L Problem List - Problems (1) S/P lobectomy of lung Code(s): Z90.2 - ACQUIRED ABSENCE OF LUNG [PART OF] (2) Lung cancer Code(s): C34.90 - MALIGNANT NEOPLASM OF UNSP PART OF UNSP BRONCHUS OR LUNG (3) HTN (hypertension) Code(s): I10 - ESSENTIAL (PRIMARY) HYPERTENSION (4) Diabetes mellitus Code(s): E11.9 - TYPE 2 DIABETES MELLITUS WITHOUT COMPLICATIONS (5) Glaucoma Code(s): H40.9 - UNSPECIFIED GLAUCOMA ASSESSMENT/PLAN: POD #1: Bronchoscopy, Left VATS, RLL lobectomy, Mediastinal LN sampling R/O Lung CA DM HTN Glaucoma Incentive Spirometry O2 as needed BD TX VTE prophylaxis PO as tolerated Follow CXR Beta kong Cardiac Telemetry monitoring Dr Orourke Critical care time spent in reviewing chart, evaluating patient and formulating plan - 36 minutes.
--- NOTE | 2018-05-25 14:28 | EKG ---
Test Reason : Blood Pressure : / mmHG Vent. Rate : 096 BPM Atrial Rate : 096 BPM P-R Int : 112 ms QRS Dur : 074 ms QT Int : 334 ms P-R-T Axes : 048 -07 -06 degrees QTc Int : 421 ms POOR DATA QUALITY, INTERPRETATION MAY BE ADVERSELY AFFECTED NORMAL SINUS RHYTHM INFERIOR INFARCT (CITED ON OR BEFORE 15-SEP-2004) ABNORMAL ECG WHEN COMPARED WITH ECG OF 24-MAY-2018 19:02, NO SIGNIFICANT CHANGE WAS FOUND Confirmed by NAILA TURPIN MD ([id number]) on 05/25/2018 2:28:01 PM Referred By: Confirmed By:NAILA TURPIN MD
--- NOTE | 2018-05-25 14:31 | EKG ---
Test Reason : Blood Pressure : / mmHG Vent. Rate : 087 BPM Atrial Rate : 087 BPM P-R Int : 146 ms QRS Dur : 080 ms QT Int : 354 ms P-R-T Axes : 051 -11 -02 degrees QTc Int : 425 ms NORMAL SINUS RHYTHM INFERIOR INFARCT (CITED ON OR BEFORE 15-SEP-2004) ABNORMAL ECG WHEN COMPARED WITH ECG OF 15-MAY-2018 12:41, NO SIGNIFICANT CHANGE WAS FOUND Confirmed by PAPI MENDEZ, NAILA ([id number]) on 05/25/2018 2:31:12 PM Referred By: Confirmed By:NAILA TURPIN MD
[2018-05-25] MEDS ORDERED: MORPHINE SULFATE 2 MG/ML VIAL IVPUSH ONE (14:59)
[2018-05-25] MEDS ORDERED: morphine SULFATE 4 MG/ML VIAL ONE (15:00)
--- NOTE | 2018-05-25 15:23 | OPR ---
Patient Name: Lewis Romero MR#: [id number] Date of Admission: 05/24/2018 Inpatient Procedure Procedure Date: 05/24/2018 Preoperative Diagnosis: 1. Lung cancer; 2. Diabetes; 3. Hypertension; 4. COPD; 5. Active Smoker Postoperative Diagnosis: Same Procedure: Flexible bronchoscopy, right thoracoscopy, lower lobectomy, lymph node sampling Indication: as above Surgeon(s): Dr. Abel Eason; Cosurgeon: Dr. Bradley Coffey; Anesthesia: General Endotracheal Wound Classification: Clean Antibiotic Prophylaxis: Cefazolin Findings: 1. Bronchoscopy: mucus in airway; small airway; 2. Thoracoscopy: pleura normal; no chest wall invasion; tumor in right lower lobe; significant inflammatory adenopathy; no air-leak from bronchus under water. Specimens Sent: right lower lobectomy, lymph nodes Complications: none Drains / Tubes / Catheters: 1 right chest tube Hardware / Implants: n/a Blood / Fluid Losses: 350cc Blood / Fluids Administered: per anesthesia Post-Operative Condition: stable, extubated to PACU Indications: This patient is a 62 year-old male smoker with the above diagnoses and a newly diagnosed lung cancer. He was referred to ri for resection from Dr. Joel. He was explained the risks, benefits, and alternatives of a bronchoscopy, thoracoscopy, thoracotomy, lobectomy, and agreed and understood. Dr. Coffey was present as a cosurgeon due to the complexity of the procedure and the lack of other available qualified help. Details of Procedure: The patient was taken into the operating room and placed supine on the table. He was monitored with pulse oximetry and blood pressure monitoring, including an arterial line. Sequential compression devices were placed. Subcutaneous heparin was given and a chand catheter was placed. He was given sedation and an endotracheal tube was placed. A bronchoscopy was performed to view the airway and for operative planning. Lung isolation was then achieved with a double-lumen. He was then positioned in the left lateral decubitus position and lung isolation was confirmed. The chest was prepared and draped in sterile fashion. The first port was placed in the 7th intercostal space. There were no pleural metastases or chest wall invasion. We placed two more ports. We then divided the inferior pulmonary ligament and sent a level 9 node for frozen which was negative. Next we individually ligated the inferior pulmonary vein. We then divided the basilar artery and bronchus. Next we completed the posterior fissure with the purple stapler after identifying the superior segmental hilum. We removed the lobe and passed it off. We irrigated with warm water and tested the bronchus under pressure. It was pneumostatic. Next we obtained hemostasis of the chest. A chest tube was placed. The lung was expanded under vision. Wounds were closed with absorbable sutures. Sterile dressings were placed. Frozen confirmed negative margins. The patient was then awakened and extubated. He tolerated the procedure well and was taken to the PACU. I was available postoperatively and will follow him as an inpatient and an outpatient after surgery.
[2018-05-25] MEDS ORDERED: morphine SULFATE 4 MG/ML VIAL IVPUSH PRN (16:17)
[2018-05-25] MEDS ORDERED: ONDANSETRON 4 MG/2 ML VIAL IVPUSH PRN (16:51)
[2018-05-25] MEDS ORDERED: PROMETHAZINE HCL 25 MG/1 ML VIAL IVPB PRN (16:51)
[2018-05-25] MEDS ORDERED: ALPRAZolam 0.25 MG TABLET PO ONE (17:57)
--- NOTE | 2018-05-25 19:10 | OP ---
DATE OF OPERATION: 05/24/2018 PREOPERATIVE DIAGNOSIS: Lung cancer, diabetes, hypertension, chronic obstructive pulmonary disease, active smoker. POSTOPERATIVE DIAGNOSIS: Lung cancer. PROCEDURE: Bronchoscopy, right video-assisted thoracoscopic surgery, right lobectomy, mediastinal lymph node dissection/sampling, and intracostal nerve block. INDICATION: Lung cancer. SURGEON: Abel Eason MD COSURGEON: Bradley Coffey MD ANESTHESIA: General endotracheal. FINDINGS: Normal airway. No intrabronchial lesions. Mucus in airway. Right lower lobe lung nodule palpable. No intrathoracic metastasis. INDICATION: A 62-year-old male, smoker, with the above diagnosis and newly diagnosed lung cancer referred to Dr. Eason for surgical resection. Risks, benefits, and alternative treatment were explained to the patient and the patient consented for surgery. I was available for this surgery as a cosurgeon due to complexity of the procedure and the lack of other available qualified help. PROCEDURE IN DETAIL: The patient is taken to the operating room and was placed in the supine position. IV access was done by the anesthesiologist. IV sedation was given. Intubated with endotracheal tube. Bronchoscopy was performed. Hereafter, lung isolation was achieved with a double-lumen tube. Patient was placed in the left lateral decubitus position right side up, flexed position. Prepped and draped in the sterile fashion. Three-hole technique was applied to this patient. Pleural cavity was entered with the camera. No pleural seeding. Inferior pulmonary ligament was dissected. Inferior pulmonary vein was isolated and transected. Hereafter I opened the major fissure. Pulmonary artery and a fissure was identified, isolated, and transected. Bronchus to lower lobe was identified, isolated, and transected using a stapler. Hereafter the posterior fissure was taken using a purple stapler. The lower lobe was removed in an Endosac. Mediastinal lymph node dissection was done at 11R, level 9, and level 7 and were sent for permanent. A 28-Y[place]ut chest tube was inserted. Hemostasis was secured. Frozen section confirmed negative margins. Patient was hereafter transferred to the PACU, extubated. Dr. Eason and Lesley performed the procedure as dictated above. I was in the OR during the entire procedure and remained thereafter. Mary [id number]
[2018-05-25] MEDS ORDERED: PT OWN MED DRAWER 7, Y5N ONE (20:38)
[2018-05-25] MEDS: METOPROLOL TARTRATE 25 MG TABLET (FP) PO SCH (21:20)
[2018-05-25] MEDS: LISINOPRIL 10 MG TABLET (FP) PO SCH (21:21)
[2018-05-25] MEDS: GABAPENTIN 300 MG CAPSULE (FP) PO SCH (21:22)
[2018-05-25] MEDS: LATANOPROST 0.005% OPHTH SOLN 2.5ML BOTTLE OU SCH (21:26)
[2018-05-26] MEDS: GABAPENTIN 300 MG CAPSULE (FP) PO SCH ×3 (05:49→21:23)
[2018-05-26 06:07] LABS: BASO % 0.5 % (0-2.0); EOS % 0.8 % (0-4.5); HEMATOCRIT 35.9 % (35.4-49); HEMOGLOBIN 12.6 GM/dL (11.7-16.9); LYMPH % 22.1 % (8-40); MCHC 35.1 g/dl (32.0-35.9); MEAN CELL VOLUME 99.6 fl (80-96); MEAN PLT VOLUME 7.7 fl (7.5-11.1); MONO % 6.8 % (3.8-10.2); NEUT % 69.8 % (42.8-82.8); PLATELET COUNT 179 K/MM3 (134-434); RBC 3.61 M/mm3 (4.00-5.60); WHITE BLOOD COUNT 11.2 K/mm3 (4.0-10.0)
[2018-05-26] MEDS: INSULIN SLIDING SCALE (NOVOLOG) 1 VIAL SQ SCH ×4 (06:13→21:28)
[2018-05-26 06:26] LABS: ALBUMIN 2.8 g/dl (3.4-5.0); ANION GAP 7 (8-16); BLOOD UREA NITROGEN 23 mg/dL (7-18); CALCIUM 8.1 mg/dL (8.5-10.1); CHLORIDE 100 mmol/L (98-107); CO2 30 mmol/L (21-32); CREATININE 1.2 mg/dL (0.7-1.3); GLUCOSE,RANDOM 204 mg/dL (74-106); MAGNESIUM 2.3 mg/dL (1.8-2.4); PHOSPHOROUS 2.6 mg/dL (2.5-4.9); POTASSIUM 4.8 mmol/L (3.5-5.1); SGOT/AST 22 U/L (15-37); SGPT/ALT 33 U/L (12-78); SODIUM 137 mmol/L (136-145)
[2018-05-26 06:28] LABS: ALK PHOS 54 U/L (45-117); BILIRUBIN,TOTAL 0.7 mg/dL (0.2-1.0); TOT PROT 6.1 g/dl (6.4-8.2)
[2018-05-26] MEDS: ALBUTEROL SO4 2.5/IPRATROPIUM 0.5 INH SOL 3 ML VIAL.NEB. NEB SCH ×4 (07:25→20:52)
[2018-05-26] MEDS ORDERED: NAPH,MB-DB/K PH,MBDB POWDER PACKET PO ONE (08:30)
--- NOTE | 2018-05-26 09:00 | PN ---
Progress Note (short form) - Note Progress Note: surgery POD #2 Bronchoscopy; VATS; RL Lobectomy; MLN sampling. Patient seen and examined at bedside, chest tube off suction yesterday. Patient states he feels better and pain improved. He denies any Cp, SOB, N/V/D Fever or chills. He is tolerating his diet and voiding. Vital Signs Temp 98.6 F 05/26/18 02:00 Pulse 81 05/26/18 08:00 Resp 18 05/26/18 08:00 BP 123/61 05/26/18 08:00 Pulse Ox 100 05/26/18 07:37 Intake & Output 05/25/18 05/25/18 05/26/18 11:59 23:59 11:59 Intake Total 560 575 600 Output Total 710 445 655 Balance -150 130 -55 Weight 180 lb 4.8 oz 183 lb 7 oz Intake: IV 560 225 Normal Saline - 1,000 ml 560 225 @ 75 mls/hr IV ASDIR ASIYA Rx#:[id number] Oral 350 600 Output: Chest Tube Drainage 210 105 105 Right Lateral Chest 210 105 105 Urine 500 340 550 Nair 500 340 Void 550 Other: Voiding Method Indwelling Catheter Indwelling Catheter Urinal Weight Measurement [facility] CBC, BMP 05/26/18 05:30 05/26/18 05:30 Chest x-ray this morning unchanged from yesterday with no signs of pneumothorax PE: A&Ox3, NAD unlabored resp on 2L NC, Wheezing heard throughout on b/l Auscultation R>L b/l LE Compartment soft, supple and non-tender with b/l scds in place Incions c/d/i with no d/c, some bruising around incision and chest tube site. Right chest ctube-serous/tidling well, Chest tube removed and Xeroform, gauze and tegaderm applied Problem List - Problems (1) S/P lobectomy of lung Assessment/Plan: POD #2 s/p lobectomy, doing well, chest tube removed. 1) chest x-ray later this morning s/p right chest tube d/c'd 2) OOB with assist 3) encourage pulmonary toilet 4) Diet as tolerated 5) pain control 6)DVT prophylaxis with Heparin SQ/SCDs Evaluation and plan discussed with Dr Eason Code(s): Z90.2 - ACQUIRED ABSENCE OF LUNG [PART OF]
[2018-05-26] MEDS: PANTOPRAZOLE SODIUM 40 MG VIAL IVPUSH SCH (09:30)
[2018-05-26] MEDS: HEPARIN NA (PORCINE) 5,000 UNITS/ML 1ML VIAL SQ SCH ×2 (09:30→21:22)
[2018-05-26] MEDS: METOPROLOL TARTRATE 25 MG TABLET (FP) PO SCH ×2 (09:32→21:23)
--- NOTE | 2018-05-26 09:39 | PN ---
Physical Exam: SUBJECTIVE: Patient seen and examined in the ICU. States that he is feeling much better now that the chest tube has been removed. States that his SOB is improving each day and that he understands the importance of getting out of bed and working with PT to continue improving his respiratory status. Also discussed with the pt the importance of using incentive spirometry. OBJECTIVE: Vital Signs Period Temp Pulse Resp BP Sys/Merino Pulse Ox Last 24 Hr 97.9 F-99.2 F 76-112 16-28 101-154/54-89 96-100 GENERAL: The patient is awake, alert, and fully oriented, in no acute distress. HEAD: Normal with no signs of trauma. EYES: PERRL, sclera anicteric, conjunctiva clear. No ptosis. ENT: moist mucous membranes. NECK: Trachea midline, supple. LUNGS: Mild crackles on the right (greatly improved from yesterday), otherwise CTA HEART: Regular rate and rhythm, S1, S2 without murmur, rub or gallop. ABDOMEN: Soft, nontender, nondistended, normoactive bowel sounds, no guarding, no rebound EXTREMITIES: warm, well-perfused, no edema. NEUROLOGICAL: Cranial nerves II through XII grossly intact. Normal speech, gait not observed. PSYCH: Normal mood, normal affect. SKIN: Warm, dry, normal turgor, no rashes or lesions noted Laboratory Results - last 24 hr 05/26/18 05/26/18 05:30 05:30 WBC 11.2 H RBC 3.61 L Hgb 12.6 Hct 35.9 MCV 99.6 H MCH 35.0 H MCHC 35.1 RDW 13.0 Plt Count 179 MPV 7.7 Absolute Neuts (auto) 7.8 Neutrophils % 69.8 Lymphocytes % 22.1 D Monocytes % 6.8 Eosinophils % 0.8 D Basophils % 0.5 Nucleated RBC % 0 Sodium 137 Potassium 4.8 Chloride 100 Carbon Dioxide 30 Anion Gap 7 L BUN 23 H Creatinine 1.2 Creat Clearance w eGFR > 60 Random Glucose 204 H Calcium 8.1 L Phosphorus 2.6 D Magnesium 2.3 Total Bilirubin 0.7 AST 22 ALT 33 Alkaline Phosphatase 54 Total Protein 6.1 L Albumin 2.8 L Active Medications Generic Name Dose Route Start Last Admin Trade Name Freq PRN Reason Stop Dose Admin Acetaminophen 650 mg 05/25/18 16:51 Tylenol - PO Q4H PRN PAIN 1-3 Albuterol/Ipratropium 1 amp 05/25/18 12:34 05/25/18 21:21 Duoneb - NEB 1 amp Q6H PRN Administration SHORTNESS OF BREATH Albuterol/Ipratropium 1 amp 05/25/18 21:21 05/26/18 07:25 Duoneb - NEB 1 amp RQID ASIYA Administration Docusate Sodium 100 mg 05/25/18 16:51 Colace - PO Q8H PRN CONSTIPATION Gabapentin 600 mg 05/25/18 22:00 05/26/18 05:49 Neurontin - PO 600 mg TID ASIYA Administration Heparin Sodium (Porcine) 5,000 unit 05/25/18 22:00 05/26/18 09:30 Heparin - SQ 5,000 unit BID ASIYA Administration Insulin Aspart 1 vial 05/25/18 22:00 05/26/18 06:13 Novolog Vial Sliding Scale - SQ 4 units ACHS ASIYA Administration Protocol Latanoprost 1 drop 05/25/18 22:00 05/25/18 21:26 Xalatan 0.005% Eye Drops - OU 1 drop HS ASIYA Administration Lisinopril 10 mg 05/25/18 22:00 05/25/18 21:21 Prinivil PO 10 mg HS ASIYA Administration Metoprolol Tartrate 25 mg 05/25/18 22:00 05/26/18 09:32 Lopressor - PO 25 mg BID ASIYA Administration Morphine Sulfate 2 mg 05/25/18 16:17 05/26/18 05:48 Morphine Sulfate IVPUSH 2 mg Q4H PRN Administration PAIN LEVEL 7-10 Ondansetron HCl 4 mg 05/25/18 16:51 Zofran Injection IVPUSH Q4H PRN NAUSEA AND/OR VOMITING Oxycodone HCl 10 mg 05/25/18 16:51 05/25/18 21:24 Roxicodone - PO 10 mg Q3H PRN Administration PAIN7 - 10; IF MORPHINE NT WRK Oxycodone HCl 5 mg 05/25/18 16:51 05/26/18 09:33 Roxicodone - PO 5 mg Q3H PRN Administration PAIN LEVEL 4 - 6 Pantoprazole Sodium 40 mg 05/26/18 10:00 05/26/18 09:30 Protonix Iv IVPUSH 40 mg DAILY ASIYA Administration Promethazine HCl 12.5 mg 05/25/18 16:51 Phenergan Injection - IVPB Q6H PRN NAUSEA AND/OR VOMITING ASSESSMENT/PLAN: 62 yo male admitted to the ICU s/p VATS with RLL lobectomy to remove nodule most likely a type of Non small cell lung cancer. Post op day 1 Neuro -No known neuro issues at this time Cardio -HTN/Tachycardia currently regular rate, normotensive Metoprolol 25 mg PO BID, will adjust as necessary for HR control Lisinopril 10 mg PO Daily Pulmonary -s/p VATS with RLL lobectomy to remove nodule Right chest tube removed, CXR noted, no pneumothorax Incentive spirometry Atrovent NEB Q6 PRN Still requiring 1L NC Respiratory request for pre/post Pt can probably go home tomorrow even if still requiring a small amount of O2 GI -GERD Protonix 40 mg IV Daily Endocrine -DM Insulin sliding scale Pain control -d/c [employer] as per anesthesia -Tylenol 650 mg PO Q4 PRN -Oxycodone 5 mg PO Q3 PRN -Oxycodone 10 mg PO Q3 PRN -Gabapentin 600 mg PO TID DVT Prophylaxis -Heparin 5000 units SQ BID FEN -Fluids: none -Electrolytes: Phos 2.6, BMP in AM -Nutrition: Diabetic diet Disposition -can be transferred to telemetry Problem List - Problems (1) Diabetes mellitus Code(s): E11.9 - TYPE 2 DIABETES MELLITUS WITHOUT COMPLICATIONS Qualifiers: Diabetes mellitus complication detail: with autonomic neuropathy (2) HTN (hypertension) Code(s): I10 - ESSENTIAL (PRIMARY) HYPERTENSION (3) Lung cancer Code(s): C34.90 - MALIGNANT NEOPLASM OF UNSP PART OF UNSP BRONCHUS OR LUNG (4) S/P lobectomy of lung Code(s): Z90.2 - ACQUIRED ABSENCE OF LUNG [PART OF] Visit type - Emergency Visit Emergency Visit: No - New Patient This patient is new to me today: No - Critical Care Critical Care patient: Yes Total Critical Care Time (in minutes): 36 Critical Care Statement: The care of this patient involved high complexity decision making to prevent further life threatening deterioration of the patient 's condition and/or to evaluate & treat vital organ system(s) failure or risk of failure.
--- NOTE | 2018-05-26 11:09 | PN ---
Progress Note, Physician Chief Complaint: patient seen and examined sitting in chair chest tube removed feeling much better - Current Medication List Current Medications: Active Medications Acetaminophen (Tylenol -) 650 mg PO Q4H PRN PRN Reason: PAIN 1-3 Albuterol/Ipratropium (Duoneb -) 1 amp NEB Q6H PRN PRN Reason: SHORTNESS OF BREATH Last Admin: 05/25/18 21:21 Dose: 1 amp Albuterol/Ipratropium (Duoneb -) 1 amp NEB RQID [facility] Last Admin: 05/26/18 07:25 Dose: 1 amp Docusate Sodium (Colace -) 100 mg PO Q8H PRN PRN Reason: CONSTIPATION Gabapentin (Neurontin -) 600 mg PO TID [facility] Last Admin: 05/26/18 05:49 Dose: 600 mg Heparin Sodium (Porcine) (Heparin -) 5,000 unit SQ BID [facility] Last Admin: 05/26/18 09:30 Dose: 5,000 unit Insulin Aspart (Novolog Vial Sliding Scale -) 1 vial SQ [facility]; Protocol Last Admin: 05/26/18 06:13 Dose: 4 units Latanoprost (Xalatan 0.005% Eye Drops -) 1 drop OU HS [facility] Last Admin: 05/25/18 21:26 Dose: 1 drop Lisinopril (Prinivil) 10 mg PO HS [facility] Last Admin: 05/25/18 21:21 Dose: 10 mg Metoprolol Tartrate (Lopressor -) 25 mg PO BID [facility] Last Admin: 05/26/18 09:32 Dose: 25 mg Morphine Sulfate (Morphine Sulfate) 2 mg IVPUSH Q4H PRN PRN Reason: PAIN LEVEL 7-10 Last Admin: 05/26/18 05:48 Dose: 2 mg Ondansetron HCl (Zofran Injection) 4 mg IVPUSH Q4H PRN PRN Reason: NAUSEA AND/OR VOMITING Oxycodone HCl (Roxicodone -) 10 mg PO Q3H PRN PRN Reason: PAIN7 - 10; IF MORPHINE NT WRK Last Admin: 05/25/18 21:24 Dose: 10 mg Oxycodone HCl (Roxicodone -) 5 mg PO Q3H PRN PRN Reason: PAIN LEVEL 4 - 6 Last Admin: 05/26/18 09:33 Dose: 5 mg Pantoprazole Sodium (Protonix Iv) 40 mg IVPUSH DAILY ASIYA Last Admin: 05/26/18 09:30 Dose: 40 mg Promethazine HCl (Phenergan Injection -) 12.5 mg IVPB Q6H PRN PRN Reason: NAUSEA AND/OR VOMITING - Objective Vital Signs: Vital Signs Temperature 98.6 F 05/26/18 02:00 Pulse Rate 81 05/26/18 08:00 Respiratory Rate 18 05/26/18 08:00 Blood Pressure 123/61 05/26/18 08:00 O2 Sat by Pulse Oximetry (%) 100 05/26/18 07:37 Constitutional: Yes: Calm Cardiovascular: Yes: Regular Rate and Rhythm, S1, S2 Respiratory: Yes: CTA Bilaterally (upper lung zones), Diminished (on right bases ) Gastrointestinal: Yes: Normal Bowel Sounds, Soft Neurological: Yes: Alert, Oriented Labs: CBC, BMP 05/26/18 05:30 05/26/18 05:30 Problem List - Problems (1) S/P lobectomy of lung Assessment/Plan: CTS on board chest tube removed today OOB to chair nebulizers incentive spirometry pain control dvt ppx Code(s): Z90.2 - ACQUIRED ABSENCE OF LUNG [PART OF] (2) Glaucoma Assessment/Plan: eye drops Code(s): H40.9 - UNSPECIFIED GLAUCOMA (3) HTN (hypertension) Assessment/Plan: lisinopril and metoprolol Code(s): I10 - ESSENTIAL (PRIMARY) HYPERTENSION (4) Diabetes mellitus Code(s): E11.9 - TYPE 2 DIABETES MELLITUS WITHOUT COMPLICATIONS Qualifiers: Diabetes mellitus complication detail: with autonomic neuropathy Assessment/Plan OOB to chair PT to evaluate ambulation to dc home tmw on possible home oxygen
--- NOTE | 2018-05-26 13:15 | PN ---
Teaching Attending Note Name of Resident: Haider Hussein ATTENDING PHYSICIAN STATEMENT I saw and evaluated the patient. I reviewed the resident's note and discussed the case with the resident. I agree with the resident's findings and plan as documented. SUBJECTIVE: Patient seen examined in the ICU. Awake and alert. Pain seems adequately controlled. CT was removed. CXR is pending. No hemoptysis. Intake & Output 05/23/18 05/24/18 05/25/18 05/26/18 23:59 23:59 23:59 23:59 Intake Total 3250 1135 900 Output Total 2670 1155 655 Balance 580 -20 245 Weight 180 lb 4.8 oz 183 lb 7 oz Last Vital Signs Temp Pulse Resp BP Pulse Ox 98.6 F 81 16 115/61 100 05/26/18 02:00 05/26/18 10:00 05/26/18 10:00 05/26/18 10:00 05/26/18 07:37 Active Medications Acetaminophen (Tylenol -) 650 mg PO Q4H PRN PRN Reason: PAIN 1-3 Albuterol/Ipratropium (Duoneb -) 1 amp NEB Q6H PRN PRN Reason: SHORTNESS OF BREATH Last Admin: 05/25/18 21:21 Dose: 1 amp Albuterol/Ipratropium (Duoneb -) 1 amp NEB RQID [facility] Last Admin: 05/26/18 11:38 Dose: 1 amp Docusate Sodium (Colace -) 100 mg PO Q8H PRN PRN Reason: CONSTIPATION Gabapentin (Neurontin -) 600 mg PO TID [facility] Last Admin: 05/26/18 05:49 Dose: 600 mg Heparin Sodium (Porcine) (Heparin -) 5,000 unit SQ BID [facility] Last Admin: 05/26/18 09:30 Dose: 5,000 unit Insulin Aspart (Novolog Vial Sliding Scale -) 1 vial SQ ACHS [facility]; Protocol Last Admin: 05/26/18 11:16 Dose: 6 units Latanoprost (Xalatan 0.005% Eye Drops -) 1 drop OU HS [facility] Last Admin: 05/25/18 21:26 Dose: 1 drop Lisinopril (Prinivil) 10 mg PO HS [facility] Last Admin: 05/25/18 21:21 Dose: 10 mg Metoprolol Tartrate (Lopressor -) 25 mg PO BID [facility] Last Admin: 05/26/18 09:32 Dose: 25 mg Morphine Sulfate (Morphine Sulfate) 2 mg IVPUSH Q4H PRN PRN Reason: PAIN LEVEL 7-10 Last Admin: 05/26/18 05:48 Dose: 2 mg Ondansetron HCl (Zofran Injection) 4 mg IVPUSH Q4H PRN PRN Reason: NAUSEA AND/OR VOMITING Oxycodone HCl (Roxicodone -) 10 mg PO Q3H PRN PRN Reason: PAIN7 - 10; IF MORPHINE NT WRK Last Admin: 05/25/18 21:24 Dose: 10 mg Oxycodone HCl (Roxicodone -) 5 mg PO Q3H PRN PRN Reason: PAIN LEVEL 4 - 6 Last Admin: 05/26/18 09:33 Dose: 5 mg Pantoprazole Sodium (Protonix Iv) 40 mg IVPUSH DAILY [facility] Last Admin: 05/26/18 09:30 Dose: 40 mg Promethazine HCl (Phenergan Injection -) 12.5 mg IVPB Q6H PRN PRN Reason: NAUSEA AND/OR VOMITING GENERAL: Awake, and fully oriented, NAD HEAD: Normal with no signs of trauma. EYES: Sclera anicteric, conjunctiva clear. EARS, NOSE, THROAT: Moist mucous membranes. NECK: supple LUNGS: Clear, diminished at the bases HEART: Regular rate and rhythm, normal S1 and S2 ABDOMEN: Soft, nontender, not distended, globally reduced bowel sounds MUSCULOSKELETAL: No CVA tenderness. R sided chest tube in place, clean dry dressing applied UPPER EXTREMITIES: 2+ pulses, warm, well-perfused. LOWER EXTREMITIES: 2+ pulses, warm, well-perfused. No peripheral edema. NEUROLOGICAL: Non-focal PSYCHIATRIC: Cooperative. Good eye contact. Appropriate mood and affect. SKIN: Warm, dry Laboratory Results - last 24 hr 05/26/18 05/26/18 05:30 05:30 WBC 11.2 H RBC 3.61 L Hgb 12.6 Hct 35.9 MCV 99.6 H MCH 35.0 H MCHC 35.1 RDW 13.0 Plt Count 179 MPV 7.7 Absolute Neuts (auto) 7.8 Neutrophils % 69.8 Lymphocytes % 22.1 D Monocytes % 6.8 Eosinophils % 0.8 D Basophils % 0.5 Nucleated RBC % 0 Sodium 137 Potassium 4.8 Chloride 100 Carbon Dioxide 30 Anion Gap 7 L BUN 23 H Creatinine 1.2 Creat Clearance w eGFR > 60 Random Glucose 204 H Calcium 8.1 L Phosphorus 2.6 D Magnesium 2.3 Total Bilirubin 0.7 AST 22 ALT 33 Alkaline Phosphatase 54 Total Protein 6.1 L Albumin 2.8 L Problem List - Problems (1) S/P lobectomy of lung Code(s): Z90.2 - ACQUIRED ABSENCE OF LUNG [PART OF] (2) Lung cancer Code(s): C34.90 - MALIGNANT NEOPLASM OF UNSP PART OF UNSP BRONCHUS OR LUNG (3) HTN (hypertension) Code(s): I10 - ESSENTIAL (PRIMARY) HYPERTENSION (4) Diabetes mellitus Code(s): E11.9 - TYPE 2 DIABETES MELLITUS WITHOUT COMPLICATIONS (5) Glaucoma Code(s): H40.9 - UNSPECIFIED GLAUCOMA ASSESSMENT/PLAN: POD #2: Bronchoscopy, Left VATS, RLL lobectomy, Mediastinal LN sampling R/O Lung CA DM HTN Glaucoma Incentive Spirometry Check O2 saturation pre and post ambulation BD TX VTE prophylaxis PO as tolerated Follow CXR Beta kong D/C planning Dr Orourke
[2018-05-26 15:21] VITALS: BMI 29.5
[2018-05-26] MEDS ORDERED: PT OWN MED DRAWER 7, Y5N ONE (21:16)
[2018-05-26] MEDS: LISINOPRIL 10 MG TABLET (FP) PO SCH (21:23)
[2018-05-26] MEDS: LATANOPROST 0.005% OPHTH SOLN 2.5ML BOTTLE OU SCH (21:29)
[2018-05-27 05:50] LABS: HEMATOCRIT 33.3 % (35.4-49); HEMOGLOBIN 11.9 GM/dL (11.7-16.9); MCH 35.3 pg (25.7-33.7); MCHC 35.8 g/dl (32.0-35.9); MEAN CELL VOLUME 98.8 fl (80-96); MEAN PLT VOLUME 7.8 fl (7.5-11.1); PLATELET COUNT 179 K/MM3 (134-434); RBC 3.37 M/mm3 (4.00-5.60); RDW 12.8 % (11.9-15.9); WHITE BLOOD COUNT 7.7 K/mm3 (4.0-10.0)
[2018-05-27 06:19] LABS: ANION GAP 6 (8-16); BLOOD UREA NITROGEN 24 mg/dL (7-18); CALCIUM 8.1 mg/dL (8.5-10.1); CHLORIDE 99 mmol/L (98-107); CO2 30 mmol/L (21-32); CREATININE 1.1 mg/dL (0.7-1.3); GLUCOSE,RANDOM 179 mg/dL (74-106); MAGNESIUM 2.2 mg/dL (1.8-2.4); PHOSPHOROUS 3.4 mg/dL (2.5-4.9); POTASSIUM 4.5 mmol/L (3.5-5.1); SODIUM 135 mmol/L (136-145)
[2018-05-27] MEDS: INSULIN SLIDING SCALE (NOVOLOG) 1 VIAL SQ SCH ×4 (06:34→21:33)
[2018-05-27] MEDS: GABAPENTIN 300 MG CAPSULE (FP) PO SCH ×3 (06:34→21:29)
--- NOTE | 2018-05-27 08:14 | PN ---
Progress Note (short form) - Note Progress Note: Thoracic Surgery: POD#3 Tube removed. CXR appropriate for this day postop. Wean oxygen or discharge on home O2 temporarily possibly as soon as today. Pain control with acetaminophen, gabapentin, and narcotic or tramadol. Will f/u path and see in office in ~7-10 days.
[2018-05-27] MEDS: ALBUTEROL SO4 2.5/IPRATROPIUM 0.5 INH SOL 3 ML VIAL.NEB. NEB SCH ×4 (08:28→20:23)
[2018-05-27] MEDS ORDERED: PT OWN MED DRAWER 7, Y5N ONE (09:23)
[2018-05-27] MEDS: PANTOPRAZOLE SODIUM 40 MG VIAL IVPUSH SCH (10:02)
[2018-05-27] MEDS: METOPROLOL TARTRATE 25 MG TABLET (FP) PO SCH ×2 (10:03→21:30)
[2018-05-27] MEDS: HEPARIN NA (PORCINE) 5,000 UNITS/ML 1ML VIAL SQ SCH ×2 (10:03→21:29)
[2018-05-27] MEDS ORDERED: HEMOQUE TEST 1 EACH EACH ONE (20:59)
[2018-05-27] MEDS: LISINOPRIL 10 MG TABLET (FP) PO SCH (21:30)
[2018-05-27] MEDS: LATANOPROST 0.005% OPHTH SOLN 2.5ML BOTTLE OU SCH (21:30)
--- NOTE | 2018-05-27 22:13 | PN ---
Progress Note, Physician Chief Complaint: s/p lobectomy History of Present Illness: NAD Walking in the hallway with nasal O2 okay to go home but needs home O2 environmental emergencies planner unavailable to arrange home care services today - Current Medication List Current Medications: Active Medications Acetaminophen (Tylenol -) 650 mg PO Q4H PRN PRN Reason: PAIN 1-3 Albuterol/Ipratropium (Duoneb -) 1 amp NEB Q6H PRN PRN Reason: SHORTNESS OF BREATH Last Admin: 05/25/18 21:21 Dose: 1 amp Albuterol/Ipratropium (Duoneb -) 1 amp NEB RQID [facility] Last Admin: 05/27/18 20:23 Dose: 1 amp Docusate Sodium (Colace -) 100 mg PO Q8H PRN PRN Reason: CONSTIPATION Gabapentin (Neurontin -) 600 mg PO TID [facility] Last Admin: 05/27/18 21:29 Dose: 600 mg Heparin Sodium (Porcine) (Heparin -) 5,000 unit SQ BID [facility] Last Admin: 05/27/18 21:29 Dose: 5,000 unit Insulin Aspart (Novolog Vial Sliding Scale -) 1 vial SQ ACHS [facility]; Protocol Last Admin: 05/27/18 21:33 Dose: 2 units Latanoprost (Xalatan 0.005% Eye Drops -) 1 drop OU HS [facility] Last Admin: 05/27/18 21:30 Dose: 1 drop Lisinopril (Prinivil) 10 mg PO HS [facility] Last Admin: 05/27/18 21:30 Dose: 10 mg Metoprolol Tartrate (Lopressor -) 25 mg PO BID [facility] Last Admin: 05/27/18 21:30 Dose: 25 mg Ondansetron HCl (Zofran Injection) 4 mg IVPUSH Q4H PRN PRN Reason: NAUSEA AND/OR VOMITING Oxycodone HCl (Roxicodone -) 10 mg PO Q3H PRN PRN Reason: PAIN7 - 10; IF MORPHINE NT WRK Last Admin: 05/25/18 21:24 Dose: 10 mg Oxycodone HCl (Roxicodone -) 5 mg PO Q3H PRN PRN Reason: PAIN LEVEL 4 - 6 Last Admin: 05/26/18 09:33 Dose: 5 mg Pantoprazole Sodium (Protonix Iv) 40 mg IVPUSH DAILY [facility] Last Admin: 05/27/18 10:02 Dose: 40 mg Promethazine HCl (Phenergan Injection -) 12.5 mg IVPB Q6H PRN PRN Reason: NAUSEA AND/OR VOMITING - Objective Vital Signs: Vital Signs Temperature 99.7 F H 05/27/18 20:00 Pulse Rate 76 05/27/18 20:00 Respiratory Rate 19 05/27/18 20:00 Blood Pressure 112/58 05/27/18 20:00 O2 Sat by Pulse Oximetry (%) 96 05/27/18 09:00 Constitutional: Yes: Well Nourished, No Distress, Calm Cardiovascular: Yes: Regular Rate and Rhythm Respiratory: Yes: Regular Gastrointestinal: Yes: Normal Bowel Sounds, Soft Musculoskeletal: Yes: WNL Extremities: Yes: WNL Edema: No Peripheral Pulses WNL: Yes Neurological: Yes: Alert, Oriented Psychiatric: Yes: Alert, Oriented Labs: CBC, BMP 05/27/18 05:30 05/27/18 05:30 Problem List - Problems (1) Diabetes mellitus Assessment/Plan: -BGM ACHS -Diabetic diet when ready to start PO intake -Insulin -RD consult -A1C Code(s): E11.9 - TYPE 2 DIABETES MELLITUS WITHOUT COMPLICATIONS Qualifiers: Diabetes mellitus complication detail: with autonomic neuropathy (2) S/P lobectomy of lung Assessment/Plan: -Seen by CT surgery -Vitals stable at this time -Home O2 upon discharge Code(s): Z90.2 - ACQUIRED ABSENCE OF LUNG [PART OF] Assessment/Plan see problem list DVT prophylaxis Self amblatory Dispo: home with VNS and Home Oxygen
[2018-05-28 02:18] VITALS: TEMP 98.8
[2018-05-28] MEDS: GABAPENTIN 300 MG CAPSULE (FP) PO SCH (06:24)
[2018-05-28] MEDS: INSULIN SLIDING SCALE (NOVOLOG) 1 VIAL SQ SCH (07:03)
[2018-05-28 08:08] VITALS: BP 116/64; PULSE 78
[2018-05-28] MEDS: ALBUTEROL SO4 2.5/IPRATROPIUM 0.5 INH SOL 3 ML VIAL.NEB. NEB SCH (08:11)
[2018-05-28] MEDS ORDERED: PT OWN MED DRAWER 7, Y5N ONE (08:28)
[2018-05-28] MEDS: PANTOPRAZOLE SODIUM 40 MG VIAL IVPUSH SCH (09:35)
[2018-05-28] MEDS: METOPROLOL TARTRATE 25 MG TABLET (FP) PO SCH (09:35)
[2018-05-28] MEDS: HEPARIN NA (PORCINE) 5,000 UNITS/ML 1ML VIAL SQ SCH (09:35)
--- NOTE | 2018-05-28 10:28 | DS ---
Physical Examination Vital Signs: Vital Signs Temperature 98.8 F 05/28/18 06:00 Pulse Rate 78 05/28/18 08:00 Respiratory Rate 20 05/28/18 08:00 Blood Pressure 116/64 05/28/18 08:00 O2 Sat by Pulse Oximetry (%) 96 05/27/18 09:00 Findings/Remarks: This is a 62 yo M with PMH of DM and HTN, who presents POD 0 s/p Bronchoscopy, VATS, RLL lobectomy and MLN sampling, performed due to suspicion of lung CA. Procedure went w/o complication, EBL 350 cc. R sided chest Tube in in place to suction, draining minimal serosanguineous fluid. Patient Lethargic due to Anesthesia. Seen in PACU S/P lobectomy. Constitutional: Yes: Well Nourished, No Distress, Calm Cardiovascular: Yes: Regular Rate and Rhythm Gastrointestinal: Yes: Normal Bowel Sounds, Soft Musculoskeletal: Yes: WNL Extremities: Yes: WNL Edema: No Peripheral Pulses WNL: Yes Neurological: Yes: Alert, Oriented Psychiatric: Yes: Alert, Oriented Labs: CBC, BMP 05/27/18 05:30 05/27/18 05:30 Discharge Summary Reason For Visit: LUNG NODULE Current Active Problems Diabetes mellitus (Acute) Glaucoma (Acute) HTN (hypertension) (Acute) Lung cancer (Acute) S/P lobectomy of lung (Acute) Condition: Stable - Instructions Disposition: VNS/HOME HEALTH CARE - Home Medications Comprehensive Discharge Medication List: Ambulatory Orders Lisinopril [Prinivil] 10 mg PO HS 11/28/13 Metoprolol Succinate [Toprol XL -] 25 mg PO HS 01/15/14 Aspirin [ASA -] 81 mg PO DAILY 05/12/18 Latanoprost 0.005% Eye Drops [Xalatan 0.005% Eye Drops -] 1 drop OU HS 05/12/18 metFORMIN HCL [Metformin HCl] 500 mg PO HS 05/12/18 Acetaminophen [Tylenol .Regular Strength -] 650 mg PO Q4H PRN tablet 05/28/18 Docusate Sodium [Colace -] 100 mg PO Q8H PRN #90 capsule 05/28/18 Gabapentin [Neurontin -] 600 mg PO TID #180 capsule 05/28/18 oxyCODONE HCL [Roxicodone -] 5 mg PO Q8H PRN #15 tablet MDD 3 05/28/18
--- NOTE | 2018-05-29 17:22 | PATH ---
Surgical Pathology Report Patient Name: LANDON NESS [facility]. Rec. #: [id number] /Age/Gender: 1955 (Age: 62) / M Account: [id number] Location: ICU LEVEL VIAL SEALER Taken: 05/24/2018 Received: 05/24/2018 Reported: 05/29/2018 Physicians: Mary Ruggiero M.D. Specimen(s) Received A: LEVEL 9 LYMPH NODE B: RIGHT LOWER LOBE LUNG C: LEVEL 7 LYMPH NODE #1 D: LEVEL 7 LYMPH NODE #2 E: LEVEL 11 LYMPH NODE Clinical History Lung cancer Intraoperative Consult Diagnosis A. Lymph node, frozen section: Negative for malignancy. B. Bronchial margin, frozen section: Negative for malignancy. Joel Willson M.D., 05/24/18 Final Diagnosis A. LYMPH NODE, LEVEL 9, EXCISION (FS): ONE BENIGN LYMPH NODE (0/1). B. LUNG, RIGHT, LOWER LOBE, LOBECTOMY (FS): INVASIVE SQUAMOUS CELL CARCINOMA, POORLY DIFFERENTIATED. INVASIVE CARCINOMA MEASURES 3.9 x 3.8 x 3.0 CM (GROSS MEASUREMENT). NO PLEURAL INVASION IDENTIFIED (PL0). NO LYMPHOVASCULAR INVASION IDENTIFIED. BRONCHIAL AND VASCULAR SURGICAL MARGINS ARE NEGATIVE FOR CARCINOMA. EIGHT BENIGN LYMPH NODES (0/8). ADJACENT LUNG PARENCHYMA SHOWS CONGESTION AND REACTIVE CHANGES. SEE INVASIVE CARCINOMA CHECKLIST BELOW. PATHOLOGIC STAGE (pTNM): pT2a N0 C. LYMPH NODE #1, LEVEL 7, EXCISION: THREE BENIGN LYMPH NODES (0/3). D. LYMPH NODE #2, LEVEL 7, EXCISION: ONE BENIGN LYMPH NODE (0/1). E. LYMPH NODE, LEVEL 11, EXCISION: ONE BENIGN LYMPH NODE (0/1). Comment: The carcinoma shows large areas of necrosis. Immunohistochemical stains performed and interpreted at [facility] show the tumor is positive for P63, while negative for TTF-1 and CK7. Immunohistochemical stains performed at [place], [place] ([id number]) and interpreted at [facility] show the tumor is positive for CK5/6, p40, and D2-40 (patchy), while negative for Napsin-A. Overall histomorphology and immunophenotype is consistent with a poorly differentiated squamous cell carcinoma. Elastin stain utilized to evaluate this case. Comments Lung Carcinoma: Surgical Pathology Cancer Case Summary (Based on AJCC 8th edition) Procedure _X_ Lobectomy Specimen Laterality _X_ Right Tumor Site _X_ Lower lobe Tumor Size Greatest dimension (centimeters): _3.9__ cm Tumor Focality _X_ Single tumor Histologic Type _X__ Invasive squamous cell carcinoma, keratinizing Histologic Grade _X_ G3: Poorly differentiated Visceral Pleura Invasion _X_ Not identified Lymphovascular Invasion _X__ Not identified Direct Invasion of Adjacent Structures _X__ No adjacent structures present Margins _X__ All margins are uninvolved by carcinoma Margins examined (specify): _Bronchial and vascular _ Bronchial Margin _X__ Uninvolved by carcinoma Vascular Margin _X__ Uninvolved by carcinoma Parenchymal Margin _X__ Not applicable Treatment Effect _X__ No known presurgical therapy Regional Lymph Nodes Lymph Node Examination Number of Lymph Nodes Involved: _0_ Number of Lymph Nodes Examined: _14_ Pathologic Stage Classification (pTNM, AJCC 8th Edition) Primary Tumor (pT) _X__ pT2a: Tumor >3 cm, but =4 cm in greatest dimension Regional Lymph Nodes (pN) _X__ pN0: No regional lymph node metastasis Electronically Signed Char Reeves M.D. Gross Description A. Received fresh labeled "level IX lymph node," is a 1.3 x 0.8 x 0.5 cm dobbins-red lymph node. The specimen is bisected and entirely submitted for frozen section. The frozen section residue is entirely submitted in one cassette. B. Received fresh labeled "right lower lobe," is a 17.5 x 13.5 x 4.5 cm lung lobe with a stapled bronchovascular margin. Sectioning reveals a 3.9 x 3.8 x 3.0 cm dobbins-harding, focally necrotic mass causing retraction of the overlying pleura. The mass does not appear to invade through pleura. The mass is 4.0 cm from the uninvolved bronchial margin. The remaining lung parenchyma is red-brown and spongy. There are multiple black possible lymph nodes at the hilum. The bronchial margin is submitted for frozen section. Fox Raiser sections are submitted in 16 cassettes as follows: 1-frozen section residue of bronchial margin; 2-stapled vascular margin; 3-6-one full face section of mass (see diagram on back of requisition); 7-3-orjmcxmftm mass with pleural retraction; 9-mass with surrounding normal parenchyma; 28-02-jjmcgyyszg lung parenchyma; 34-84-qlagevqy possible lymph nodes. C. Received in formalin labeled "level 7 lymph node #1," are 3 dobbins portions of possible lymphoid tissue averaging 0.7 cm in greatest dimension. The specimens are submitted in toto in one cassette. D. Received in formalin labeled "level 7 lymph node #2," is a 1.1 x 0.7 x 0.5 cm dobbins possible lymph node. The specimen is bisected and entirely submitted in one cassette. E. Received in formalin labeled "level II lymph node," is a 1.3 x 0.5 x 0.5 cm black, irregular lymph node. The specimen is bisected and entirely submitted in one cassette. [facility]
== END 2018-05-28 11:01 | disposition home health service (06) | DRG 165 ==
LOC: JSAMEDAYSX 04:44 → EDSTATUS 08:00 → JICU 16:40
PROVIDERS: ADMIT Family Medicine; ATTEND Family Medicine
PROC: 0W9940Z Drainage of Right Pleural Cavity with Drainage Device, Percutaneous Endoscopic Approach (ICD-10-PCS; 2018-05-24)
PROC: 0BJ08ZZ Inspection of Tracheobronchial Tree, Via Natural or Artificial Opening Endoscopic (ICD-10-PCS; 2018-05-24)
PROC: 0BBF4ZZ Excision of Right Lower Lung Lobe, Percutaneous Endoscopic Approach (ICD-10-PCS; principal; 2018-05-24 07:30)
PROC: 07B74ZX Excision of Thorax Lymphatic, Percutaneous Endoscopic Approach, Diagnostic (ICD-10-PCS; 2018-05-24 07:30)
PROC: 0WP9X0Z Removal of Drainage Device from Right Pleural Cavity, External Approach (ICD-10-PCS; 2018-05-26)
DX: C34.31 Malignant neoplasm of lower lobe, right bronchus or lung (principal); I10 Essential (primary) hypertension; E11.9 Type 2 diabetes mellitus without complications; H40.9 Unspecified glaucoma; Z87.891 Personal history of nicotine dependence; Z79.84 Long term (current) use of oral hypoglycemic drugs; R00.0 Tachycardia, unspecified; K21.9 Gastro-esophageal reflux disease without esophagitis; J44.9 Chronic obstructive pulmonary disease, unspecified
CPT/HCPCS: 36415; 71045-TC-FY; 80048; 80053; 82962; 83735; 84100; 85025; 85027; 88307-TC; 88331-TC; 88341-TC; 93005; 93010; 94010; 94640; 94760; 94761; 97116-GP; 97161-GP; J0131; J1644; J7620

== ENCOUNTER 2020-05-02 18:21 | Emergency (ER) | payer BC, OTHER ==
[2020-05-02 19:21] VITALS: BP 120/84; PULSE 80; TEMP 98.1; BMI 28.5
[2020-05-02] MEDS ORDERED: KETOROLAC TROMETHAMINE 60 MG/2 ML VIAL IM ONE (20:47)
[2020-05-02] MEDS ORDERED: KETOROLAC TROMETHAMINE 60 MG/2 ML VIAL ONE (21:25)
--- NOTE | 2020-05-02 21:44 | PDOC ---
Documentation entered by Heidi Oviedo SCRIBE, acting as scribe for Marianne Shannon MD. Marianne Shannon MD: This documentation has been prepared by the josieibPreet roman Lincy, SCRIBE, under my direction and personally reviewed by me in its entirety. I confirm that the documentation accurately reflects all work, treatment, procedures, and medical decision making performed by me. History of Present Illness - General Chief Complaint: Pain Stated Complaint: RT KNEE PAIN Time Seen by Provider: 05/02/20 19:25 History Source: Patient Exam Limitations: No Limitations - History of Present Illness Initial Comments: 05/02/20 19:56 The patient is a 64-year-old male with a past medical history significant for HTN, DM type 2, Lung CA s/p L. lower lobe resection (2 years ago, no chemo) and s/p R. knee replacement (2005) who presents to the emergency department with right knee pain. The patient presents with progressively worsening right knee pain, with pain radiating up and down the leg. The patient reports associated symptoms of difficulty weight bearing on the leg and difficulty sleeping secondary to the pain. The patient reports taking a Motrin yesterday. The patient reports a few days prior he banged the side of the knee against a chair, denies falling. Allergies: NKDA Social history: Former smoker. Denies the use of alcohol. Past History - Medical History Allergies/Adverse Reactions: Allergies Allergy/AdvReac Type Severity Reaction Status Date / Time No Known Drug Allergies Allergy Verified 05/24/18 07:02 Home Medications: Ambulatory Orders Lisinopril [Prinivil] 10 mg PO HS 11/28/13 Metoprolol Succinate [Toprol XL -] 25 mg PO HS 01/15/14 Latanoprost 0.005% Eye Drops [Xalatan 0.005% Eye Drops -] 1 drop OU HS 05/12/18 Aspirin [ASA -] 81 mg PO DAILY 05/02/20 Cyanocobalamin (Vitamin B-12) [Vitamin B-12] 1,000 mcg PO DAILY 05/02/20 Diclofenac Sodium [Voltaren -] 75 mg PO BID PRN #14 tablet. 05/02/20 Glimepiride 4 mg PO DAILY 05/02/20 Netarsudil Mesylate [Rhopressa] 2.5 ml OP ASDIR 05/02/20 Lima-3 Fatty Acids/Fish Oil [Fish Oil 1,000 mg Capsule] 1 each PO DAILY 05/02/20 Pantoprazole Sodium 40 mg PO DAILY 05/02/20 Sitagliptin Phos/Metformin HCl [Janumet Xr 50-1,000 mg Tablet] 1 each PO BID 05/02/20 Vitamin E 800 unit PO DAILY 05/02/20 Anemia: No Asthma: No Cancer: No Cardiac Disorders: No CVA: No COPD: No CHF: No Dementia: No Diabetes: Yes GI Disorders: No Disorders: No HTN: Yes Hypercholesterolemia: No Liver Disease: No Seizures: No Thyroid Disease: No - Surgical History Abdominal Surgery: No Appendectomy: No Cardiac Surgery: No Cholecystectomy: No Lung Surgery: Yes (PART OF LUNG) Neurologic Surgery: No Orthopedic Surgery: Yes (right knee surgery,RTC) - Psycho-Social/Smoking History Smoking History: Never smoked Have you smoked in the past 12 months: No Number of Cigarettes Smoked Daily: 20 If you are a former smoker, when did you quit?: 03/2018 Information on smoking cessation initiated: No 'Breaking Loose' booklet given: 11/28/13 - Substance Abuse Hx (Audit-C & DAST Scrn) How often the patient has a drink containing alcohol: Never Score: In Men: 4 or > Positive; In Women: 3 or > Positive: 0 Screen Result (Pos requires Nsg. Audit-10AR): Negative In the last yr the pt used illegal drug/Rx for NonMed reason: No Score: Yes response is considered Positive: 0 Screen Result (Positive result requires Nsg. DAST-10): Negative Review of Systems - Review of Systems Able to Perform ROS?: Yes Comments:: 05/02/20 19:57 CONSTITUTIONAL: Pt denies Fever, Chills, weakness. HEENT: denies vision changes, sore throat RESPIRATORY: Denies cough, sob, hemoptysis CARDIAC: denies chest pain, palpitations, lightheadedness, leg swelling ABD/GI: denies abd pain, nausea, vomiting, blood per rectum, melena, diarrhea : denies dysuria, frequency, discharge MSK: +right knee pain. denies back pain, joint swelling SKIN: denies bruising, erythema, rash NEUROLOGICAL: denies headache, numbness, focal weakness, tingling, ataxia, weakness HEMATOLOGICAL: denies anemia, easy bruising, easy bleeding *Physical Exam - Vital Signs Last Vital Signs Temp Pulse Resp BP Pulse Ox 98.1 F 80 20 120/84 97 05/02/20 18:22 05/02/20 18:22 05/02/20 18:22 05/02/20 18:22 05/02/20 18:22 - Physical Exam 05/02/20 20:10 GENERAL: The patient is awake, alert, and fully oriented, in no acute distress. HEAD: Normal with no signs of trauma. EYES: Pupils equal, round and reactive to light, extraocular movements intact, sclera anicteric, conjunctiva clear with no pallor. NECK: Normal range of motion, supple EXTREMITIES: +minimal edema of the right knee, healed vertical surgical incision, minimal anterior edema, mild tenderness of the lateral aspect of the tibial joint line. No deformities, ecchymosis or ligamentous instability. Rest of the extremities: Normal range of motion, no edema. No clubbing or cyanosis. No cords, erythema, or tenderness. NEUROLOGICAL: Normal speech, normal gait. SKIN: Warm, Dry, normal turgor, no rashes or lesions noted. Medical Decision Making - Medical Decision Making As noted above, this 64-year-old man with a history of a right total knee replacement approximately 14 years ago, presents with progressive pain in the right knee since bumping it against a counter at home a few days ago. The patient did not fall or twist the knee after the direct trauma. Patient describes pain is becoming worse every day since the injury. He has taken ibuprofen only once (yesterday) stating that he does not like to take medications. Exam as noted. Right knee 2 position x-ray taken: The patient has brought copies of his x-rays taken just after his knee replacement. Preliminary interpretation by me: No d ifference from today's x-ray which appears to be normal. Right knee 2 position x-ray sent to Imaging risk control product liability director: No effusion seen. Prior right total arthroplasty with patellar resurfacing seen. There is no radiographic evidence of hardware complication. No fractures, dislocations or other significant bony abnormalities. Results discussed with the patient. Knee immobilizer placed on right knee. Patient given Toradol 60 mg IM. The patient will follow-up with his orthopedist (Dr. Mae/Jez) on May 05. Prescription for diclofenac 75 mg twice a day, taken with food, as needed for pain, sent to his pharmacy Discharge - Discharge Information Problems reviewed: Yes Clinical Impression/Diagnosis: Knee sprain Qualifiers: Encounter type: initial encounter Involved ligament of knee: unspecified ligament Laterality: right Qualified Code(s): S83.91XA - Sprain of unspecified site of right knee, initial encounter Condition: Stable Disposition: HOME - Additional Discharge Information Prescriptions: Diclofenac Sodium [Voltaren -] 75 mg PO BID PRN #14 tablet.[address] DIEZ Reason: Pain - Follow up/Referral Referrals: Mustapha Story MD [Staff Physician] - 3 days - Patient Discharge Instructions Patient Printed Discharge Instructions: Knee Sprain Additional Instructions: Knee immobilizer during the day until seen by orthopedist Diclofenac 75 mg twice a day as needed for pain; take with food Can also take [id number] acetaminophen as needed Call Dr. Story/Dr. Mae office on May 05 and arrange for follow-up Return to ER if you have persistent severe pain or increased swelling - Post Discharge Activity
== END 2020-05-02 21:40 | disposition home or self-care (01) ==
LOC: FER 18:21
PROC: 3E023GC Introduction of Other Therapeutic Substance into Muscle, Percutaneous Approach (ICD-10-PCS; principal; 2020-05-02)
DX: S83.91XA Sprain of unspecified site of right knee, initial encounter (principal); W22.8XXA Striking against or struck by other objects, initial encounter
CPT/HCPCS: 73562-TC-RT-FY; 99284-25

== ENCOUNTER 2020-12-24 04:58 | Day surgery (SDC) | payer BC, OTHER ==
[2020-12-23 14:33] VITALS: BMI 31.6
[2020-12-24 08:39] VITALS: TEMP 97.8
[2020-12-24 10:23] LABS: BASO % 0.9 % (0-2.0); EOS % 2.5 % (0-4.5); HEMATOCRIT 35.3 % (35.4-49); HEMOGLOBIN 11.8 GM/dL (11.7-16.9); LYMPH % 27.3 % (8-40); MCHC 33.4 g/dl (32.0-35.9); MEAN CELL VOLUME 89.6 fl (80-96); MEAN PLT VOLUME 8.6 fl (7.5-11.1); MONO % 6.1 % (3.8-10.2); NEUT % 63.2 % (42.8-82.8); PLATELET COUNT 128 K/MM3 (134-434); RBC 3.94 M/mm3 (4.00-5.60); RDW 16.1 % (11.9-15.9); WHITE BLOOD COUNT 4.5 K/mm3 (4.0-10.0)
[2020-12-24 10:28] LABS: INR 1.15 (0.83-1.09); PROTHROMBIN TIME (PATIENT) 14.1 SEC (9.7-13.0)
[2020-12-24 10:39] LABS: POTASSIUM 4.6 mmol/L (3.5-5.1)
[2020-12-24 10:41] LABS: CALCIUM 9.4 mg/dL (8.5-10.1)
[2020-12-24 10:42] LABS: ALBUMIN 3.7 g/dl (3.4-5.0); BLOOD UREA NITROGEN 14.3 mg/dL (7-18)
[2020-12-24 10:45] LABS: CREATININE 1.2 mg/dL (0.55-1.3)
[2020-12-24 10:47] LABS: BILIRUBIN,TOTAL 0.6 mg/dL (0.2-1); TOT PROT 7.3 g/dl (6.4-8.2)
[2020-12-24 11:09] VITALS: BP 141/82; PULSE 70
[2020-12-25 16:08] LABS: ALPHA-1-ANTITRYPSIN 152 mg/dL (101-187); MITOCHONDRIAL AB <20.0 Units (0.0-20.0)
[2020-12-25 23:06] LABS: HEP B CORE AB, TOT Negative (Negative)
== END 2020-12-24 10:05 | disposition home or self-care (01) ==
LOC: JASU-ENDO 04:58
PROVIDERS: ATTEND Internal Medicine Gastroenterology
PROC: 0DB78ZX Excision of Stomach, Pylorus, Via Natural or Artificial Opening Endoscopic, Diagnostic (ICD-10-PCS; 2020-12-24)
PROC: 0DBL8ZX Excision of Transverse Colon, Via Natural or Artificial Opening Endoscopic, Diagnostic (ICD-10-PCS; 2020-12-24)
PROC: 0DBM8ZX Excision of Descending Colon, Via Natural or Artificial Opening Endoscopic, Diagnostic (ICD-10-PCS; 2020-12-24)
PROC: 0DB98ZX Excision of Duodenum, Via Natural or Artificial Opening Endoscopic, Diagnostic (ICD-10-PCS; principal; 2020-12-24 08:00)
DX: K22.70 Barrett's esophagus without dysplasia (principal); I85.00 Esophageal varices without bleeding; K44.9 Diaphragmatic hernia without obstruction or gangrene; K22.9 Disease of esophagus, unspecified; K20.90 Esophagitis, unspecified without bleeding; K29.50 Unspecified chronic gastritis without bleeding; K31.89 Other diseases of stomach and duodenum; D12.4 Benign neoplasm of descending colon; D12.3 Benign neoplasm of transverse colon; K64.8 Other hemorrhoids; N40.0 Benign prostatic hyperplasia without lower urinary tract symptoms
CPT/HCPCS: 36415; 80053; 82103; 82105; 82390; 82728; 82962; 83516; 83540; 83550; 85025; 85610; 86038; 86704; 86706; 86707; 86708; 86709; 86803; 87340

== ENCOUNTER 2021-01-28 04:41 | Day surgery (SDC) | payer OTHER ==
[2021-01-23 15:29] VITALS: BMI 32.5
[2021-01-28] MEDS ORDERED: ceFAZolin 2 GRAM PREMIX BAG IVPB ONE (10:15)
[2021-01-28] MEDS ORDERED: CEFAZOLIN 1 GM/D5W 2 GM/100 ML BAG ONE (10:16)
[2021-01-28 10:52] VITALS: TEMP 97.9
[2021-01-28 13:13] VITALS: BP 135/71; PULSE 59
== END 2021-01-28 11:43 | disposition home or self-care (01) ==
LOC: JASU-ENDO 04:41
PROVIDERS: ATTEND Internal Medicine Gastroenterology
PROC: 06L38CZ Occlusion of Esophageal Vein with Extraluminal Device, Via Natural or Artificial Opening Endoscopic (ICD-10-PCS; principal; 2021-01-28 10:00)
DX: I85.00 Esophageal varices without bleeding (principal); K76.6 Portal hypertension; K29.70 Gastritis, unspecified, without bleeding

== ENCOUNTER 2022-02-05 04:48 | Day surgery (SDC) | payer OTHER ==
[2022-02-05] MEDS ORDERED: cefTRIAXone SODIUM 1 GM VIAL IVPB ONE (11:36)
[2022-02-05 11:50] VITALS: TEMP 97.8
[2022-02-05 12:42] VITALS: BP 140/76; PULSE 70
== END 2022-02-05 13:15 | disposition home or self-care (01) ==
LOC: JASU-ENDO 04:48
PROVIDERS: ATTEND Internal Medicine Gastroenterology
PROC: 0DB68ZX Excision of Stomach, Via Natural or Artificial Opening Endoscopic, Diagnostic (ICD-10-PCS; 2022-02-05)
PROC: 0W3P8ZZ Control Bleeding in Gastrointestinal Tract, Via Natural or Artificial Opening Endoscopic (ICD-10-PCS; principal; 2022-02-05 12:00)
DX: K76.6 Portal hypertension (principal); I85.11 Secondary esophageal varices with bleeding; K31.89 Other diseases of stomach and duodenum; K22.70 Barrett's esophagus without dysplasia; K29.50 Unspecified chronic gastritis without bleeding; D50.9 Iron deficiency anemia, unspecified; I10 Essential (primary) hypertension; E11.9 Type 2 diabetes mellitus without complications
CPT/HCPCS: 88305-TC; 88342-TC

== ENCOUNTER 2022-02-12 11:08 | Emergency (ER) | payer OTHER ==
[2022-02-12 11:25] VITALS: PULSE 63; TEMP 97.6; BMI 29.0
[2022-02-12 14:15] LABS: HEMATOCRIT 41.4 % (35.4-49); MCH 33.4 pg (25.7-33.7); MCHC 33.8 g/dl (32.0-35.9); MEAN CELL VOLUME 98.6 fl (80-96); MEAN PLT VOLUME 8.4 fl (7.5-11.1); PLATELET COUNT 101 10^3/uL (134-434); RBC 4.19 M/mm3 (4.00-5.60); RDW 17.8 % (11.9-15.9)
[2022-02-12 14:16] LABS: BASO % 0.7 % (0-2.0); EOS % 2.7 % (0-4.5); LYMPH % 33.3 % (8-40); MONO % 7.3 % (3.8-10.2)
[2022-02-12 14:21] LABS: INR 1.09 (0.83-1.09); PROTHROMBIN TIME (PATIENT) 12.5 SEC (9.7-13.0)
[2022-02-12 14:24] LABS: ACTIVATED PTT 34.9 SECONDS (25.2-36.5)
[2022-02-12 14:45] LABS: ALBUMIN 3.8 g/dl (3.4-5.0); BLOOD UREA NITROGEN 16.3 mg/dL (7-18); CALCIUM 9.3 mg/dL (8.5-10.1)
[2022-02-12 14:48] LABS: CREATININE 1.1 mg/dL (0.55-1.3)
[2022-02-12 14:50] LABS: BILIRUBIN,TOTAL 0.4 mg/dL (0.2-1); TOT PROT 7.5 g/dl (6.4-8.2)
[2022-02-12 15:53] VITALS: BP 140/82
== END 2022-02-12 15:53 | disposition home or self-care (01) ==
LOC: JER 11:08
DX: R19.5 Other fecal abnormalities (principal)
CPT/HCPCS: 36415; 71046-TC-FY; 80053; 82272; 85025; 85610; 85730; 86850; 86900; 86901; 99284-25

== ENCOUNTER 2023-07-07 05:08 | Day surgery (SDC) | payer OTHER ==
[2023-07-05 12:50] VITALS: BMI 25.4
[2023-07-07] MEDS ORDERED: MIDAZOLAM HCL 2 MG/2 ML SINGLE DOSE VIAL ONE (07:50)
[2023-07-07] MEDS ORDERED: PROPOFOL 40 ML ONE (07:50)
[2023-07-07] MEDS ORDERED: SUCCINYLCHOLINE CHLORIDE 200 MG/10 ML VIAL ONE (07:50)
[2023-07-07] MEDS ORDERED: ceFAZolin SODIUM 1 GM VIAL ONE (08:14)
[2023-07-07 08:37] VITALS: RESP 18
[2023-07-07 09:48] VITALS: BP 143/71; PULSE 54; TEMP 98.6
== END 2023-07-07 09:37 | disposition home or self-care (01) ==
LOC: JASU-ENDO 05:08
PROVIDERS: ATTEND Internal Medicine Gastroenterology
PROC: 06L38CZ Occlusion of Esophageal Vein with Extraluminal Device, Via Natural or Artificial Opening Endoscopic (ICD-10-PCS; 2023-07-07)
PROC: 0DB68ZX Excision of Stomach, Via Natural or Artificial Opening Endoscopic, Diagnostic (ICD-10-PCS; principal; 2023-07-07 08:00)
DX: I85.01 Esophageal varices with bleeding (principal); K22.70 Barrett's esophagus without dysplasia; K21.00 Gastro-esophageal reflux disease with esophagitis, without bleeding; K31.84 Gastroparesis; I10 Essential (primary) hypertension; E11.9 Type 2 diabetes mellitus without complications; Z79.84 Long term (current) use of oral hypoglycemic drugs
CPT/HCPCS: 82962; 88305-TC; 88342-TC